=== PATIENT | female | born 1965 | race Hispanic/Latino ===

== ENCOUNTER 2021-04-23 19:34 | Emergency (ER) | payer MEDICAID ==
[~2021-04-23] VITALS: Ht 162.6 cm; Wt 108.9 kg
[2021-04-23] MEDS ORDERED: GABAPENTIN 300 MG CAPSULE PO STA (20:24)
[2021-04-23] MEDS ORDERED: ORPHENADRINE CITRATE 30 MG/ML ML IV ONE (21:00)
[2021-04-23 23:03] VITALS: BP 136/82
[2021-04-23] MEDS ORDERED: GABA800T9 PO (23:09)
[2021-04-23] MEDS ORDERED: HYDROCODONE/ACETAMINOPHEN 10/325 MG TAB PO ONE (23:30)
== END 2021-04-23 23:25 | disposition home or self-care (01) ==
LOC: EDH 19:34
DX: M51.16 Intervertebral disc disorders with radiculopathy, lumbar region (principal); M50.30 Other cervical disc degeneration, unspecified cervical region; E03.9 Hypothyroidism, unspecified; E11.9 Type 2 diabetes mellitus without complications; E66.01 Morbid (severe) obesity due to excess calories; K21.9 Gastro-esophageal reflux disease without esophagitis; M19.90 Unspecified osteoarthritis, unspecified site; Z79.4 Long term (current) use of insulin; Z79.899 Other long term (current) drug therapy; Z68.41 Body mass index [BMI] 40.0-44.9, adult
CPT/HCPCS: 36415; 84443; 96374; 99283; J2360

== ENCOUNTER 2022-03-03 19:42 | Emergency (ER) | payer MEDICAID ==
[~2022-03-03] VITALS: Ht 162.6 cm; Wt 105.2 kg
[~2022-03-03 19:42] MED LIST: GABA800T9 PO
[2022-03-03] MEDS ORDERED: TETANUS/DIPHTHERIA TOXOID [ADULT] 0.5 ML VIAL IM ONE (21:30)
[2022-03-03] MEDS ORDERED: KETOROLAC 60 MG VIAL (30MG/ML) IM ONE (21:30)
[2022-03-03] MEDS ORDERED: NAPR-1180 PO (21:53)
[2022-03-03 22:08] VITALS: BP 141/87
== END 2022-03-03 22:15 | disposition home or self-care (01) ==
LOC: EDH 19:42
DX: S90.31XA Contusion of right foot, initial encounter (principal); S10.91XA Abrasion of unspecified part of neck, initial encounter; E11.9 Type 2 diabetes mellitus without complications; I10 Essential (primary) hypertension; E66.01 Morbid (severe) obesity due to excess calories; Z68.39 Body mass index [BMI] 39.0-39.9, adult; Z79.1 Long term (current) use of non-steroidal anti-inflammatories (NSAID); Z79.899 Other long term (current) drug therapy; X58.XXXA Exposure to other specified factors, initial encounter; Y93.89 Activity, other specified; Y92.89 Other specified places as the place of occurrence of the external cause; Y99.8 Other external cause status
CPT/HCPCS: 99284; 90714; 73610; 73630; 96372; 90471; J1885

== ENCOUNTER 2022-05-07 18:06 | Emergency (ER) | payer MEDICAID ==
[~2022-05-07] VITALS: Ht 162.6 cm; Wt 99.8 kg
[~2022-05-07 18:06] MED LIST changes: +NAPR-1180 PO
[2022-05-07 18:56] LABS: APPEARANCE,URINE CLOUDY (CLEAR); BASOPHILS % (AUTO) 0.4 % (0.0-5.0); BILIRUBIN,URINE NEGATIVE (NEGATIVE); COLOR,URINE YELLOW (YELLOW); EOSINOPHILS % (AUTO) 1.2 % (0.0-8.0); GLUCOSE, URINE (UA) TRACE mg/dL (NEGATIVE); HEMATOCRIT 43.3 % (36-48); KETONES,URINE NEGATIVE (NEGATIVE); LEUKOCYTE ESTERASE ,URINE 500 Leu/uL (NEGATIVE); LYMPHOCYTES % (AUTO) 22.6 % (21.0-51.0); MEAN CORPUSCULAR HEMOGLOBIN 31.2 pg (27.0-33.0); MEAN CORPUSCULAR HGB CONC 35.3 g/dL (32.0-36.0); MEAN CORPUSCULAR VOLUME 88.2 fL (79-99); MONOCYTES % (AUTO) 6.4 % (3.0-13.0); NITRATE,URINE NEGATIVE (NEGATIVE); OCCULT BLOOD,URINE SMALL (NEGATIVE); PH,URINE 6.5 (5.0-8.0); PLATELET COUNT (AUTO) 107 K/uL (130-400); PROTEIN,URINE 20 mg/dL (NEGATIVE); RED BLOOD CELL COUNT(AUTO) 4.91 MIL/uL (4.00-5.50); RED CELL DISTRIBUTION WIDTH 13.8 % (11.0-15.5); UROBILINOGEN,URINE 3 mg/dL (0.2-1.0); WHITE BLOOD COUNT (AUTO) 5.6 K/uL (4.8-10.8)
[2022-05-07] MEDS ORDERED: 0.9%NACL 1000ML 1,000 ML IV ONE (19:00)
[2022-05-07 19:01] LABS: CREATININE 0.8 mg/dL (0.5-1.5); POTASSIUM 3.5 mmol/L (3.5-5.1)
[2022-05-07 19:09] LABS: ALBUMIN 3.8 g/dL (3.5-5.0); TOTAL PROTEIN, SERUM 8.1 g/dL (6.0-8.3)
[2022-05-07 19:13] LABS: BACTERIA,URINE RARE /HPF (None Seen); MUCUS,URINE RARE LPF (None Seen); RBC,URINE 26-50 /HPF (0-1); SQUAMOUS EPITHELIAL CELL,UR MOD /HPF (0-2)
[2022-05-07] MEDS ORDERED: CEFTRIAXONE 1G VIAL IVP ONE (20:00)
[2022-05-07] MEDS ORDERED: ONDANSETRON 4MG INJ IVP ONE (20:00)
[2022-05-07] MEDS ORDERED: MECL-160 PO (20:38)
[2022-05-07] MEDS ORDERED: CEFU500T67 PO (20:38)
[2022-05-07] MEDS ORDERED: MECLIZINE HCL 25 MG TABLET PO ONE (21:00)
[2022-05-07 21:04] VITALS: BP 131/62
== END 2022-05-07 21:14 | disposition home or self-care (01) ==
LOC: EDH 18:06
DX: R42 Dizziness and giddiness (principal); N39.0 Urinary tract infection, site not specified; F41.9 Anxiety disorder, unspecified; E11.9 Type 2 diabetes mellitus without complications; I10 Essential (primary) hypertension; E66.01 Morbid (severe) obesity due to excess calories; Z68.37 Body mass index [BMI] 37.0-37.9, adult
CPT/HCPCS: 99284; 96374; 96361; 96375; 84484; 80053; 85025; 87088; 81001; 36415; 93005; J7030; J0696; J2405

== ENCOUNTER 2023-01-03 20:11 | Emergency (ER) | payer MEDICAID ==
[~2023-01-03] VITALS: Ht 162.6 cm; Wt 106.1 kg
[~2023-01-03 20:11] MED LIST changes: +CEFU500T67 PO; +MECL-160 PO
[2023-01-03 20:14] VITALS: BP 118/64
[2023-01-03] MEDS ORDERED: BENZ200C53 PO (20:31)
[2023-01-03] MEDS ORDERED: PRED20TA3 PO (20:31)
[2023-01-03] MEDS ORDERED: ALBU90AE2 IH (20:31)
== END 2023-01-03 23:38 | disposition home or self-care (01) ==
LOC: EDH 20:11
DX: J40 Bronchitis, not specified as acute or chronic (principal); E11.9 Type 2 diabetes mellitus without complications; Z79.52 Long term (current) use of systemic steroids; Z79.899 Other long term (current) drug therapy; Z20.822 Contact with and (suspected) exposure to COVID-19
CPT/HCPCS: 99284; 71045; 87635; 87880; 87804 ×2; C9803

== ENCOUNTER 2023-05-21 19:51 | Emergency (ER) | payer MEDICAID ==
[~2023-05-21] VITALS: Ht 162.6 cm; Wt 100.7 kg
[~2023-05-21 19:51] MED LIST changes: +ALBU90AE2 IH; +BENZ200C53 PO; -MECL-160 PO; +MECL-302 PO; +PRED20TA3 PO
[2023-05-21 20:20] VITALS: BP 169/92; PULSE 88; RESP 18
== END 2023-05-21 21:28 | disposition home or self-care (01) ==
LOC: EDH 19:51
DX: H61.21 Impacted cerumen, right ear (principal); I10 Essential (primary) hypertension; E11.9 Type 2 diabetes mellitus without complications

== ENCOUNTER 2024-05-28 14:05 | Emergency (ER) | payer BC, MEDICAID ==
[~2024-05-28] VITALS: Ht 165.1 cm; Wt 81.6 kg
[~2024-05-28 14:05] MED LIST changes: -ALBU90AE2 IH; +ALBU90AE3 IH; +GABA-1555 PO; -GABA800T9 PO
--- NOTE | 2024-05-28 14:28 | ERN ---
General Chief Complaint: Headache Stated Complaint: HEADACHE Time Seen by MD: 14:07 History of Present Illness Initial Comments 59-year-old female who presents for headache nausea and epigastric discomfort after taking Ozempic. Patient tried Ozempic for the 1st time last night. Today she feels epigastric pain nauseous no vomiting and she has a headache. No other symptoms. No vision changes, no focal neurologic deficits no signs of stroke. Medical history: Hypertension, diabetes, insulin-dependent Surgical history: Back surgeries Stable vital signs per EMS. Allergies: Coded Allergies: No Known Allergies (Unverified Allergy, Unknown, 04/23/21) Home Meds Active Scripts Prednisone (Prednisone) 20 Mg Tablet, 1 TAB PO DAILY for 6 Days, #6 TAB 0 Refills TAKE 1 TAB BY MOUTH THREE TIMES PER DAY X3 DAYS, THEN TAKE 1 TAB BY MOUTH TWICE A DAY X2 DAYS, THEN TAKE 1 TAB BY MOUTH ONCE A DAY X1 DAY. Prov:MEENAKSHI OSUNA 01/03/23 Albuterol Sulfate (Proair Digihaler) 90 Mcg Aer.pw.bas, 90 MCG IH TID, #1 INHALER Prov:MEENAKSHI OSUNA 01/03/23 Benzonatate (Benzonatate) 200 Mg Capsule, 200 MG PO TID PRN for COUGH for 14 Days, #42 CAP Prov:MEENAKSHI OSUNA 01/03/23 Cefuroxime Axetil (Cefuroxime) 500 Mg Tablet, 500 MG PO BID for 5 Days, #10 TAB Prov:RANCHO KITCHEN MD 05/07/22 Meclizine HCl (Meclizine HCl) 25 Mg Tablet, 25 MG PO TID PRN for DIZZINESS, #25 TAB Prov:RANCHO KITCHEN MD 05/07/22 Naproxen (Naprosyn) 500 Mg Tablet, 500 MG PO BIDPC, #60 TAB Prov:BEBA PARISH 03/03/22 Gabapentin (Gabapentin) 800 Mg Tablet, 800 MG PO TID, #90 TAB 0 Refills Prov:DARELL CORONA MD 04/23/21 Past Medical History Past Medical History: Diabetes-Type II, GERD, Hypertension Medical History Other: SEASONAL ALLERGIES Past Surgical History: Cholecystectomy Surgical History Other: LOWER BACK SX Family History Family History: Negative Social History Social History: Negative, Lives with family ROS Dictation CONSTITUTIONAL: Weakness HEAD/FACE: No signs of trauma. EENT: No eye pain, no blurred vision, no tearing, no double vision, no ear wilma n, no ear discharge, no nose pain, no nasal congestion, no throat pain, no throat swelling, no mouth pain. RESPIRATORY: No cough, no orthopnea, no SOB, no stridor, no wheezing. CARDIOVASCULAR: No chest pain, no edema, no palpitations, no syncope. GASTROINTESTINAL/ABDOMINAL: Nausea vomiting epigastric discomfort GENITOURINARY: No abnormal discharge, no dysuria, no frequent urination, no hematuria. No complaints of pain in the genitals. MUSCULOSKELETAL: No back pain, no gout, no joint pain, no joint swelling, no muscle pain, no muscle stiffness, no neck pain. INTEGUMENTARY: No change in color, no change in hair/nails, no dryness, no lesion, no lumps, no rash. NEUROLOGICAL/PSYCH: Headache HEMATOLOGIC/LYMPHATIC: Not anemic, no history of blood clots, no apparent bleeding, no bruising, glands not swollen. All Systems Negative, Except as Noted. Physical Exam Physical Exam Dictation VITAL SIGNS: Reviewed. GENERAL APPEARANCE: Alert, oriented x3, moderate distress. HEAD AND FACE: Non-traumatic. EYES: PERRL, pink conjunctivas, eyelid no trauma, anterior chamber clear. EARS: Pinnas intact and no signs of trauma or erythema. Ear canals clear and no discharge. TMs no erythema. NOSE: No discharge, no bleeding. OROPHARYNX: Mouth normal, teeth no caries, tongue pink. Pharynx clear, no erythema. Tonsils no exudates, no abscesses noted. Mucous membrane moist. NECK: Supple, non-tender, no thyromegaly, no masses, no JVD, no bruits. BREAST: Deferred. CHEST: No tenderness, no crepitus, no paradoxical movement, no retractions. LUNGS: Clear, well-ventilated, symmetric, no rales, no wheezing, no rhonchi, no stridor, good breath sounds bilaterally. HEART: Regular rate, regular rhythm, no murmur, no gallops. VASCULAR: No peripheral edema. ABDOMEN: Soft, positive bowel sounds, nondistended, no guarding, nontender, no rebound, no masses no hepatomegaly, no splenomegaly, no Robles's sign, no hernias. RECTAL: Deferred. GENITAL: Deferred. NEUROLOGICAL: Normal speech, gross motor function intact, gross sensory function intact. MUSCULOSKELETAL: Neck nontender, full range of motion, back nontender, full range of motion. EXTREMITIES: Nontender, full range of motion. SKIN: Color pink, dry, no turgor, no rash, no lacerations, no abrasions, no contusions. LYMPHATICS: Deferred. Results Laboratory and Microbiology Lab and Micro Result Laboratory Tests Test 05/28/24 15:29 White Blood Count 6.7 K/uL (4.8-10.8) Red Blood Count 4.89 MIL/uL (4.00-5.50) Hemoglobin 15.4 g/dL (12.0-16.0) Hematocrit 43.1 % (36-48) Mean Corpuscular Volume 88.1 fL (79-99) Mean Corpuscular Hemoglobin 31.5 pg (27.0-33.0) Mean Corpuscular Hemoglobin Concent 35.7 g/dL (32.0-36.0) Red Cell Distribution Width 13.1 % (11.0-15.5) Platelet Count 107 K/uL (130-400) L Mean Platelet Volume 11.5 fL (7.5-10.5) H Immature Granulocyte % (Auto) 0.1 % (0-1) Neutrophils (%) (Auto) 80.4 % (40.0-77.0) H Lymphocytes (%) (Auto) 14.6 % (21.0-51.0) L Monocytes (%) (Auto) 4.2 % (3.0-13.0) Eosinophils (%) (Auto) 0.6 % (0.0-8.0) Basophils (%) (Auto) 0.1 % (0.0-5.0) Neutrophils # (Auto) 5.4 K/uL (1.8-7.7) Lymphocytes # (Auto) 1.0 K/uL (1.0-4.8) Monocytes # (Auto) 0.3 K/uL (0.1-1.0) Eosinophils # (Auto) 0.04 K/uL (0.00-0.70) Basophils # (Auto) 0.01 K/uL (0.00-0.20) Absolute Immature Granulocyte (auto 0.01 K/uL (0-1) Nucleated Red Blood Cells 0.0 % (0.0-0.19) Sodium Level 134 mmol/L (136-145) L Potassium Level 3.8 mmol/L (3.5-5.1) Chloride Level 99 mmol/L (101-111) L Carbon Dioxide Level 30 mmol/L (21-32) Blood Urea Nitrogen 11 mg/dL (7-18) Creatinine 0.6 mg/dL (0.5-1.0) Glomerular Filtration Rate Calc 105 mL/min (>90) Random Glucose 165 mg/dL (70-105) H Total Calcium 8.4 mg/dL (8.5-10.1) L Total Bilirubin 1.8 mg/dL (0.2-1.0) H Direct Bilirubin 0.2 mg/dL (0.0-0.3) Aspartate Amino Transf (AST/SGOT) 44 U/L (10-37) H Alanine Aminotransferase (ALT/SGPT) 53 U/L (12-78) Alkaline Phosphatase 88 U/L (50-136) Total Creatine Kinase 76 U/L (21-232) Troponin I High Sensitivity < 4.0 ng/L (4-50) L Total Protein 8.0 g/dL (6.0-8.3) Albumin 3.7 g/dL (3.5-5.0) Lipase 77 U/L (16-77) MDM CC: Headache, nausea, epigastric pain status post Ozempic use Historian: Patient Limitations by social determinants of Health: None Comorbidities: Hypertension, diabetes, back surgeries Differential diagnosis includes medication effect, biliary disease, gastritis, brain bleed, tumor, other. Vital signs: Stable remained stable Labs show no leukocytosis, left shift. No bands. Chemistry panel is normal. Liver enzymes normal. Lipase normal. Troponin normal. CT head without contrast per my independent interpretation: No acute abnormalities or bleeding. Patient received 1 L of normal saline, Toradol IV, Reglan IV here in the ER. She has improvement of her symptoms. I suspect it is due to the Ozempic. We will discharge with Reglan recommend PCP follow up as needed. REASON: headache ORDERING PHYSICIAN: MICHAEL LEVINE DO PROCEDURE: HEAD WO - CT HEAD/BRAIN W/O CONTRAST CT HEAD WITHOUT CONTRAST INDICATION: Headache TECHNIQUE: Noncontrast axial helical CT images from the vertex through the skull base using 5 mm slice thickness without contrast material. CT was performed with one or more of the following dose reduction techniques: Automated exposure control, adjustment of the mA and/or kV according to patient size, or use of iterative reconstruction technique. COMPARISON: None FINDINGS: The cerebral and cerebellar hemispheres are age-appropriate in appearance. No evidence for abnormal extra-axial fluid collections or masses. The ventricles and sulci are normal in size and configuration. No evidence for intracranial parenchymal, epidural, or subdural hemorrhage, mass effect or midline shift. The zepeda-white matter differentiation is well preserved. No secondary evidence to suggest acute ischemia. The brainstem and cerebellum appear normal. The visualized orbits appear unremarkable. The visible paranasal sinuses and mastoid air cells are clear. The calvarium appears normal. IMPRESSION: No acute intracranial process identified. ED Course Orders Procedure Category Date Status Time Cardiac Panel LAB 05/28/24 Complete 14:12 Cbc With Differential LAB 05/28/24 Complete 14:12 Basic Metabolic Panel LAB 05/28/24 Complete 14:12 Urinalysis Profile LAB 05/28/24 Logged 14:12 0.9%Nacl 1000ml (Ns PHA 05/28/24 Complete 1000ml) 14:30 Metoclopramide 10 PHA 05/28/24 Complete Mg/2 Ml Vial (Reglan 1 14:30 12 Lead Ekg Tracing- EKG 05/28/24 Complete Technical 14:12 Hepatic Function Panel LAB 05/28/24 Complete 14:12 Lipase LAB 05/28/24 Complete 14:12 Ketorolac PHA 05/28/24 Complete Tromethamine 15mg/Ml 14:30 Morphine 4mg Syg PHA 05/28/24 Complete (Morphine 4mg Syg) 14:30 Ct Head/Brain W/O CT 05/28/24 Resulted Contrast 14:34 Current Medications Medications (Trade) Dose Ordered Sig/Stacy Route PRN Reason Start Time Stop Time Status Last Admin Dose Admin Ketorolac Tromethamine (toRADol) 15 mg ONCE ONCE IV 05/28/24 14:30 05/28/24 14:31 DC 05/28/24 15:08 Metoclopramide HCl (regLAN 10MG IV) 10 mg ONCE ONCE IVP 05/28/24 14:30 05/28/24 14:31 DC 05/28/24 15:09 Morphine Sulfate (morPHINE 4MG SYG) 4 mg ONCE ONCE IVP 05/28/24 14:30 05/28/24 14:31 DC 05/28/24 15:09 Sodium Chloride 1,000 ml @ 0 mls/hr ONCE ONCE IV 05/28/24 14:30 05/28/24 14:31 DC 05/28/24 15:07 Vital Signs Date Time Temp Pulse Resp B/P (MAP) Pulse Ox O2 Delivery O2 Flow Rate FiO2 05/28/24 15:39 97.5 96 18 139/97 96 Room Air* 0 21 05/28/24 14:10 98.2 80 18 163/68 98 Room Air 0 DX & DISP Disposition: Discharge Departure Impression: Primary Impression: Medication side effect Additional Impressions: Headache, Nausea & vomiting Condition: Stable Scripts Metoclopramide HCl (Reglan 10 mg Tab) 10 Mg Tablet 1 TAB PO TID for nausea for 7 Days, #21 TAB 0 Refills Prov: MICHAEL LEVINE DO 05/28/24 Additional Instructions: Your symptoms are consistent with side effects from the Ozempic. I recommend reducing your Ozempic dose or stop using it. Discuss with your doctor whether he needs his switch to a different medication. Your lab work (CBC, BMP, lipase, liver enzymes) is stable. The CT scan your brain is unremarkable. You received IV fluid, Toradol, and Reglan here in the ER. I have prescribed Reglan tabs. You can take this up to 3 times a day as needed for stomach upset and nausea. You can take 600 mg of ibuprofen 3 times a day for headache. You can also take the hydrocodone tabs that you have already been prescribed for headache or pain. Please return to the emergency department if you have any concerns. Referrals: PEYMAN COX MD (PCP) MICHAEL LEVINE DO May 28, 2024 14:28
--- NOTE | 2024-05-28 14:31 | EKG ---
[facility] Test Date: 2024-05-28 Test Time: 14:25:22 Pat Name: MARQUIS CM Department: ED Room: Gender: F Agricultural Pilot: [id number] : 1965 Requested By: MICHAEL LEVINE Order Number: [id number] Reading MD: Jam Zhu Measurements Intervals [place] Rate: 86 P: 25 CA: 164 QRS: -7 QRSD: 88 T: -8 QT: 396 QTc: 473 Interpretive Statements Sinus rhythm Borderline T abnormalities, diffuse leads Compared to ECG 05/07/2022 17:44:59 T-wave abnormality now present Electronically Signed On 05-28-2024 20:50:52 [employer]IST by Jam Zhu Please click the below link to view image of tracing.
--- NOTE | 2024-05-28 14:59 | HMCIMG ---
CT HEAD WITHOUT CONTRAST INDICATION: Headache TECHNIQUE: Noncontrast axial helical CT images from the vertex through the skull base using 5 mm slice thickness without contrast material. CT was performed with one or more of the following dose reduction techniques: Automated exposure control, adjustment of the mA and/or kV according to patient size, or use of iterative reconstruction technique. COMPARISON: None FINDINGS: The cerebral and cerebellar hemispheres are age-appropriate in appearance. No evidence for abnormal extra-axial fluid collections or masses. The ventricles and sulci are normal in size and configuration. No evidence for intracranial parenchymal, epidural, or subdural hemorrhage, mass effect or midline shift. The zepeda-white matter differentiation is well preserved. No secondary evidence to suggest acute ischemia. The brainstem and cerebellum appear normal. The visualized orbits appear unremarkable. The visible paranasal sinuses and mastoid air cells are clear. The calvarium appears normal. IMPRESSION: No acute intracranial process identified.
[2024-05-28] MEDS: 0.9%NACL 1000ML 1,000 ML IV ONE (15:07)
[2024-05-28] MEDS: ketOROlac 15MG/ML VIAL (15MG/ML) IV ONE (15:08)
[2024-05-28] MEDS: metoCLOPRAmide 10 MG/2 ML VIAL IVP ONE (15:09)
[2024-05-28] MEDS: morPHINE 4 MG SYG IVP ONE (15:09)
[2024-05-28 15:39] LABS: BASOPHILS # (AUTO) 0.01 K/uL (0.00-0.20); BASOPHILS % (AUTO) 0.1 % (0.0-5.0); EOSINOPHILS # (AUTO) 0.04 K/uL (0.00-0.70); EOSINOPHILS % (AUTO) 0.6 % (0.0-8.0); HEMATOCRIT 43.1 % (36-48); IMMATURE GRANULOCYTE ABSOLUTE 0.01 K/uL (0-1); LYMPHOCYTES % (AUTO) 14.6 % (21.0-51.0); MEAN CORPUSCULAR HEMOGLOBIN 31.5 pg (27.0-33.0); MEAN CORPUSCULAR HGB CONC 35.7 g/dL (32.0-36.0); MEAN CORPUSCULAR VOLUME 88.1 fL (79-99); MONOCYTES # (AUTO) 0.3 K/uL (0.1-1.0); MONOCYTES % (AUTO) 4.2 % (3.0-13.0); NEUTROPHILS # (AUTO) 5.4 K/uL (1.8-7.7); NEUTROPHILS % (AUTO) 80.4 % (40.0-77.0); PLATELET COUNT (AUTO) 107 K/uL (130-400); RED BLOOD CELL COUNT(AUTO) 4.89 MIL/uL (4.00-5.50); RED CELL DISTRIBUTION WIDTH 13.1 % (11.0-15.5); WHITE BLOOD COUNT (AUTO) 6.7 K/uL (4.8-10.8)
[2024-05-28 15:47] LABS: CARBON DIOXIDE 30 mmol/L (21-32); CHLORIDE 99 mmol/L (101-111); CREATININE 0.6 mg/dL (0.5-1.0); GLOMERULAR FILTR. RATE CALC 105 mL/min (>90); GLUCOSE,RANDOM 165 mg/dL (70-105); POTASSIUM 3.8 mmol/L (3.5-5.1); SODIUM SERUM 134 mmol/L (136-145); UREA NITROGEN, BLOOD 11 mg/dL (7-18)
[2024-05-28 15:53] LABS: ALANINE AMINOTRANSFERASE 53 U/L (12-78); ALBUMIN 3.7 g/dL (3.5-5.0); ASPARTATE AMINOTRANSFERASE 44 U/L (10-37); BILIRUBIN,DIRECT 0.2 mg/dL (0.0-0.3); BILIRUBIN,TOTAL 1.8 mg/dL (0.2-1.0); CREATINE KINASE, TOTAL 76 U/L (21-232)
[2024-05-28] MEDS ORDERED: METO10TA41 PO (16:10)
[2024-05-28 16:12] VITALS: BP 140/82; PULSE 71; RESP 18; TEMP 97.5; O2SAT 98
== END 2024-05-28 16:36 | disposition home or self-care (01) ==
LOC: EDH 14:05 → EDBD 14:05 → EDH 16:36
DX: R51.9 Headache, unspecified (principal); R11.2 Nausea with vomiting, unspecified; T50.995A Adverse effect of other drugs, medicaments and biological substances, initial encounter; E11.9 Type 2 diabetes mellitus without complications; I10 Essential (primary) hypertension; K21.9 Gastro-esophageal reflux disease without esophagitis; Z79.4 Long term (current) use of insulin; Z79.52 Long term (current) use of systemic steroids; Z79.85 Long-term (current) use of injectable non-insulin antidiabetic drugs; Z79.899 Other long term (current) drug therapy; Z90.49 Acquired absence of other specified parts of digestive tract; Y92.89 Other specified places as the place of occurrence of the external cause
CPT/HCPCS: 99284; 96374; 70450; 96375; 96361; 82550; 80076; 84484; 80048; 83690; 85025; 36415; 93005; J7030; J2270; J2765; J1885

== ENCOUNTER 2024-07-21 18:05 | Emergency (ER) | payer BC ==
[~2024-07-21] VITALS: Ht 162.6 cm; Wt 99.3 kg
[~2024-07-21 18:05] MED LIST changes: +METO10TA41 PO
--- NOTE | 2024-07-21 18:23 | ERN ---
ED Note History of Present Illness Stated Complaint: LEFT RIB PAIN FOR 3 DAYS Chief Complaint: Rib Pain Time Seen by MD: 18:06 Time Seen by Midlevel: 18:06 Dictation: The patient is a 59-year-old female with a history of diabetes who presents to the emergency department with complaints of left lower rib pain last left upper abdominal pain onset Saturday after bending down to get something. Denies falling. Denies any nausea, vomiting, diarrhea, constipation, fevers. Allergies: Coded Allergies: No Known Allergies (Unverified Allergy, Unknown, 04/23/21) Home Meds Active Scripts Cyclobenzaprine HCl (Flexeril) 10 Mg Tab, 10 MG PO TID for muscle sstiffness, #14 TAB 0 Refills Prov:ELISA HUBBARD [facility] 07/21/24 Metoclopramide HCl (Reglan 10 mg Tab) 10 Mg Tablet, 1 TAB PO TID for nausea for 7 Days, #21 TAB 0 Refills Prov:MICHAEL LEVINE DO 05/28/24 Prednisone (Prednisone) 20 Mg Tablet, 1 TAB PO DAILY for 6 Days, #6 TAB 0 Re fills TAKE 1 TAB BY MOUTH THREE TIMES PER DAY X3 DAYS, THEN TAKE 1 TAB BY MOUTH TWICE A DAY X2 DAYS, THEN TAKE 1 TAB BY MOUTH ONCE A DAY X1 DAY. Prov:MEENAKSHI OSUNA V [facility] 01/03/23 Albuterol Sulfate (Proair Digihaler) 90 Mcg Aer.pw.bas, 90 MCG IH TID, #1 INHALER Prov:MEENAKSHI OSUNA V [facility] 01/03/23 Benzonatate (Benzonatate) 200 Mg Capsule, 200 MG PO TID PRN for COUGH for 14 Days, #42 CAP Prov:MEENAKSHI OSUNA V [facility] 01/03/23 Cefuroxime Axetil (Cefuroxime) 500 Mg Tablet, 500 MG PO BID for 5 Days, #10 TAB Prov:RANCHO KITCHEN MD 05/07/22 Meclizine HCl (Meclizine HCl) 25 Mg Tablet, 25 MG PO TID PRN for DIZZINESS, #25 TAB Prov:RANCHO KITCHEN MD 05/07/22 Naproxen (Naprosyn) 500 Mg Tablet, 500 MG PO BIDPC, #60 TAB Prov:BEBA PARISH 03/03/22 Gabapentin (Gabapentin) 800 Mg Tablet, 800 MG PO TID, #90 TAB 0 Refills Prov:DARELL CORONA MD 04/23/21 Past Medical History Past Medical History: Anxiety, Diabetes-Type II, High Cholesterol, Hypertension Additional Past Medical Hx: SEASONAL ALLERGIES Surgical History: Other Surgical History Other: LUMBAR SX Family History: Negative Social History: Negative, Lives with family RN Note Reviewed/Agreed w/PFSH: Yes Review of System Dictation Constitutional: Negative for fever,chills, and weight loss Eyes: Negative for injury, pain,redness, and discharge ENT: Negative for injury,pain or swelling Cardiovascular: Negative for chest pain, palpitations, and edema positive for left lower rib pain Respiratory: Negative for shortness of breath, cough, and wheezing, Abdomen/GI: Negative for abdominal pain, nausea, vomiting, diarrhea, and constipation Back: Negative for injury and pain : Negative for injury, bleeding and discharge MS/Extremity: Negative for injury and deformity Skin: Negative for rash, and discoloration Neuro: Negative for headache, weakness, numbness, tingling, and seizure Psych: Negative for suicide ideation, homicidal ideation, and hallucinations Initial Vital Sign VS Vital Signs Date Time Temp Pulse Resp B/P (MAP) Pulse Ox O2 Delivery O2 Flow Rate FiO2 07/21/24 18:08 98.1 74 18 149/76 98 0 07/21/24 20:16 Room Air* 21 Physical Exam Dictation Vital Signs reviewed General Appearance: Alert, oriented x 3, no acute distress, well developed, nourished. Head and Face: non-traumatic. Eyes: PERRL, pink conjunctivas, eyelid no trauma, anterior chamber with arcus senilis. Ears: Pinnas intact and no signs of trauma or erythema ear canals clear and no discharge TM no erythema Nose: No discharge, no bleeding. Oropharynx: Mouth normal, tongue pink. pharynx clear,no erythema, tonsils no exudates, no abscesses noted, mucous membrane moist Neck: Supple, non-tender, no thyromegaly, no masses, no JVD, no bruits Breast:Deferred Chest:No tenderness, no crepitus, no paradoxical movement, no retractions Lungs:Clear, well-ventilated, symmetric, no rales, no wheezing, no rhonchi, no stridor, good breath sounds bilaterally Heart: Regular rate, regular rhythm, no murmur, no gallops Vascular: no peripheral edema, Abdomen: Soft, positive bowel sounds, nondistended, no guarding, Left upper abdominal pain, no rebound, no masses no hepatomegaly, no splenomegaly, no Robles's sign, no hernias. Rectal: Deferred Genital: Deferred Neurological: Normal speech, motor function intact, sensory function intact Musculoskeletal: Neck nontender, full range of motion, back nontender, full range of motion, Extremities: nontender, full range of motion Skin: Color pink, dry, no turgor, no rash, no lacerations, no abrasions, no contusions. Lymphatic: Deferred Results (Laboratory/Radiology) Laboratory/Radiology Laboratory Tests Test 07/21/24 18:41 White Blood Count 4.5 K/uL (4.8-10.8) L Red Blood Count 4.34 MIL/uL (4.00-5.50) Hemoglobin 13.9 g/dL (12.0-16.0) Hematocrit 39.4 % (36-48) Mean Corpuscular Volume 90.8 fL (79-99) Mean Corpuscular Hemoglobin 32.0 pg (27.0-33.0) Mean Corpuscular Hemoglobin Concent 35.3 g/dL (32.0-36.0) Red Cell Distribution Width 13.2 % (11.0-15.5) Platelet Count 81 K/uL (130-400) L Mean Platelet Volume 11.7 fL (7.5-10.5) H Immature Granulocyte % (Auto) 0.2 % (0-1) Neutrophils (%) (Auto) 66.0 % (40.0-77.0) Lymphocytes (%) (Auto) 26.0 % (21.0-51.0) Monocytes (%) (Auto) 5.6 % (3.0-13.0) Eosinophils (%) (Auto) 2.0 % (0.0-8.0) Basophils (%) (Auto) 0.2 % (0.0-5.0) Neutrophils # (Auto) 3.0 K/uL (1.8-7.7) Lymphocytes # (Auto) 1.2 K/uL (1.0-4.8) Monocytes # (Auto) 0.3 K/uL (0.1-1.0) Eosinophils # (Auto) 0.09 K/uL (0.00-0.70) Basophils # (Auto) 0.01 K/uL (0.00-0.20) Absolute Immature Granulocyte (auto 0.01 K/uL (0-1) Nucleated Red Blood Cells 0.0 % (0.0-0.19) Sodium Level 138 mmol/L (136-145) Potassium Level 3.4 mmol/L (3.5-5.1) L Chloride Level 102 mmol/L (101-111) Carbon Dioxide Level 31 mmol/L (21-32) Blood Urea Nitrogen 11 mg/dL (7-18) Creatinine 0.9 mg/dL (0.5-1.0) Glomerular Filtration Rate Calc 75 mL/min (>90) Random Glucose 359 mg/dL (70-105) H Total Calcium 8.8 mg/dL (8.5-10.1) Total Bilirubin 1.0 mg/dL (0.2-1.0) Direct Bilirubin 0.2 mg/dL (0.0-0.3) Aspartate Amino Transf (AST/SGOT) 40 U/L (10-37) H Alanine Aminotransferase (ALT/SGPT) 60 U/L (12-78) Alkaline Phosphatase 83 U/L (50-136) Troponin I High Sensitivity 5 ng/L (4-50) Total Protein 7.1 g/dL (6.0-8.3) Albumin 3.1 g/dL (3.5-5.0) L Lipase 118 U/L (16-77) H REASON: left lower pain ORDERING PHYSICIAN: ELISA HUBBARD LINE STAKER PROCEDURE: CHEST WO - CT CHEST W/O CONTRAST CT CHEST WITHOUT CONTRAST CT RECONSTRUCTIONS INDICATION: Left lower rib pain radiating from the back to the front TECHNIQUE: Routine axial images using 5 mm slice thickness were acquired from the lung apices to the bases without the administration of IV contrast.Coronal and sagittal reformatted images acquired for interpretation. 3-D volume renderings included. CT was performed with one or more of the following dose reduction techniques: Automated exposure control, adjustment of the mA and/or kV according to patient size, or use of iterative reconstruction technique. COMPARISON: None FINDINGS: The heart size is normal. No pericardial effusion noted. The visualized great vessels and thoracic aorta are within normal limits. The trachea and airways are patent. No evidence for pulmonary nodule, consolidation, cavitary lesion, or other abnormal pulmonary parenchymal opacity. No axillary, hilar, or mediastinal lymphadenopathy. No pleural effusion or pneumothorax identified. 1.0 cm aggregate of nonobstructing calculi at the upper pole of the right kidney. Gallbladder is absent. Liver contour nodularity. 2.0 cm simple cyst within the caudate lobe. Diffuse low attenuation of the liver parenchyma suggests fatty change. Visible osseous structures are intact. IMPRESSION: 1. No evidence for any left rib abnormality or any acute cardiopulmonary process. 2. Findings suggesting cirrhotic liver. 3. Nonobstructing right nephrolithiasis. 4. Additional minor findings, postsurgical changes, and pertinent negatives as reported. Labs Reviewed?: Yes EKG: (+) rhythm (Sinus rhythm) EKG Comment: Date:07/21/2024 Time:1902 Ventricular rate:68 [place] interval:165 QRS duration:90 QT/QTc:414 EKG interpretation: Sinus rhythm Reviewed by ED Attending no STEMI ED Course ED Course Orders Procedure Category Date Status Time Ketorolac 60mg/2ml PHA 07/21/24 Complete (Toradol 60mg/2ml) 18:30 Cbc With Differential LAB 07/21/24 Complete 18:17 Troponin I High LAB 07/21/24 Complete Sensitivity 18:17 12 Lead Ekg Tracing- EKG 07/21/24 Complete Technical 18:17 Lipase LAB 07/21/24 Complete 18:17 Basic Metabolic Panel LAB 07/21/24 Complete 18:17 Hepatic Function Panel LAB 07/21/24 Complete 18:17 Ct Chest W/O Contrast CT 07/21/24 Resulted 18:57 Insulin Regular, PHA 07/21/24 Complete Human 3ml (Humulin R 19:30 Potassium Bicarb/Cit PHA 07/21/24 Complete Ac 25meq (K-Lyte Ta 19:30 Lidocaine (Lidocaine PHA 07/21/24 Complete Patch 4%) 20:00 Current Medications Medications (Trade) Dose Ordered Sig/Stacy Route PRN Reason Start Time Stop Time Status Last Admin Dose Admin Insulin Human Regular (humuLIN R 100 UNIT/ML 3ML) 8 unit ONCE ONCE SQ 07/21/24 19:30 07/21/24 19:31 DC 07/21/24 19:45 Ketorolac Tromethamine (toRADol 60MG/ 2ML) 60 mg ONCE ONCE IM 07/21/24 18:30 07/21/24 18:31 DC 07/21/24 18:35 Lidocaine (Lidocaine Patch 4%) 1 each ONCE ONCE TP 07/21/24 20:00 07/21/24 20:01 DC 07/21/24 20:03 Potassium Bicarbonate (K-Lyte Tablet Eff 25 Meq Tablet.eff) 25 meq ONCE ONCE PO 07/21/24 19:30 07/21/24 19:31 DC 07/21/24 19:42 Vital Signs Date Time Temp Pulse Resp B/P (MAP) Pulse Ox O2 Delivery O2 Flow Rate FiO2 07/21/24 20:16 98.1 72 18 137/71 98 Room Air* 0 21 07/21/24 18:08 98.1 74 18 149/76 98 0 Medical Decision Making MDM The patient is a 59-year-old female with a history of diabetes who presents to the emergency department with complaints of left lower rib pain last left upper abdominal pain onset Saturday after bending down to get something. Denies falling. Denies any nausea, vomiting, diarrhea, constipation, fevers. CBC showed no leukocytosis, no anemia, low platelets slightly decreased from previous visits, patient with no active bleeding, chemistry showed mild hypokalemia, GFR of some, elevated blood glucose noted patient was giving a potassium replacement. CT showed no acute rib fractures. Patient reports improving in pain. Continues in no acute distress. Will be discharged to follow up with PCP. Differential diagnosis: Rib fracture, gastritis ACS, muscle spasms Need for hospitalization: Patient does not meet criteria for hospitalization. There are no social concerns with this patient. DX & DISP Disposition: Discharge Departure Impression: Primary Impression: Rib pain on left side Additional Impressions: Rib sprain, Uncontrolled diabetes mellitus, Hypokalemia, Thrombocytopenia Condition: Stable Scripts Cyclobenzaprine HCl (Flexeril) 10 Mg Tab 10 MG PO TID for muscle sstiffness, #14 TAB 0 Refills Prov: ELISA HUBBARD LINE STAKER 07/21/24 Additional Instructions: Please follow up with the primary doctor in 1-2 days. Please return to ER if symptoms worsen. FOLLOW-UP WITH PRIMARY CARE PROVIDER IN 1 TO 2 DAYS. TAKE MEDICATIONS DIRECTED HERE IN THE EMERGENCY ROOM. OKAY TO CONTINUE HOME MEDICATIONS UNLESS OTHERWISE DISCUSSED DURING YOUR VISIT IN THE EMERGENCY ROOM TODAY. RETURN TO YOUR NEAREST EMERGENCY ROOM IF SYMPTOMS WORSEN OR IF THERE IS NO IMPROVEMENT. CALL 911 IF YOU NEED IMMEDIATE ASSISTANCE. TAKE TYLENOL OR MOTRIN [id number] NEEDED AND IF NO CONTRAINDICATIONS ARE PRESENT. INCREASE ORAL HYDRATION. A WOUND CULTURE OR URINE CULTURE WAS ORDERED HERE IN THE EMERGENCY ROOM DEPARTMENT PLEASE FOLLOW-UP WITH PRIMARY CARE PROVIDER AND ADVISE THEM TO GET REPEAT PORTS FROM OUR FACILITY. IF YOU HAD ANY ASHUOTSH WRAP/SPLINTS THAT WERE APPLIED HERE, PLEASE DO NOT REMOVE THEM UNTIL YOU SEE YOUR PRIMARY CARE OR SPECIALTY. Referrals: PEYMAN COX MD (PCP) Time of Disposition: 20:07 I have reviewed the case, and I agree with, Diagnosis and Plan I performed a substantive portion of the visit. I have reviewed and personally made and approve the management plan that is documented in the notes by myself with ERIK/resident. I acknowledged full responsibility for the patient's management plan. ELISA HUBBARD Jul 21, 2024 18:23 MICHAEL LEVINE DO Jul 21, 2024 22:58
[2024-07-21] MEDS: ketOROlac 60 MG VIAL (30MG/ML) IM ONE (18:35)
[2024-07-21 18:52] LABS: BASOPHILS # (AUTO) 0.01 K/uL (0.00-0.20); BASOPHILS % (AUTO) 0.2 % (0.0-5.0); EOSINOPHILS # (AUTO) 0.09 K/uL (0.00-0.70); HEMATOCRIT 39.4 % (36-48); IMMATURE GRANULOCYTE ABSOLUTE 0.01 K/uL (0-1); LYMPHOCYTES # (AUTO) 1.2 K/uL (1.0-4.8); MEAN CORPUSCULAR HGB CONC 35.3 g/dL (32.0-36.0); MEAN CORPUSCULAR VOLUME 90.8 fL (79-99); MONOCYTES # (AUTO) 0.3 K/uL (0.1-1.0); MONOCYTES % (AUTO) 5.6 % (3.0-13.0); PLATELET COUNT (AUTO) 81 K/uL (130-400); RED BLOOD CELL COUNT(AUTO) 4.34 MIL/uL (4.00-5.50); RED CELL DISTRIBUTION WIDTH 13.2 % (11.0-15.5); WHITE BLOOD COUNT (AUTO) 4.5 K/uL (4.8-10.8)
[2024-07-21 19:01] LABS: CREATININE 0.9 mg/dL (0.5-1.0); POTASSIUM 3.4 mmol/L (3.5-5.1)
--- NOTE | 2024-07-21 19:07 | EKG ---
[facility] Test Date: 2024-07-21 Test Time: 19:03:21 Pat Name: MARQUIS CM Department: ED Room: Gender: F Map And Chart Mounter: [id number] : [id number] Requested By: ELISA HUBBARD Order Number: [id number] Reading MD: Luis Stanton Measurements Intervals [place] Rate: 68 P: 27 MS: 165 QRS: 4 QRSD: 90 T: 23 QT: 414 QTc: 442 Interpretive Statements Sinus rhythm Compared to ECG 05/28/2024 14:25:22 T-wave abnormality no longer present Electronically Signed On 07-23-2024 10:29:42 FLUMER by Luis Stanton Please click the below link to view image of tracing.
[2024-07-21 19:10] LABS: ALBUMIN 3.1 g/dL (3.5-5.0); BILIRUBIN,DIRECT 0.2 mg/dL (0.0-0.3); TOTAL PROTEIN, SERUM 7.1 g/dL (6.0-8.3)
--- NOTE | 2024-07-21 19:36 | HMCIMG ---
CT CHEST WITHOUT CONTRAST CT RECONSTRUCTIONS INDICATION: Left lower rib pain radiating from the back to the front TECHNIQUE: Routine axial images using 5 mm slice thickness were acquired from the lung apices to the bases without the administration of IV contrast.Coronal and sagittal reformatted images acquired for interpretation. 3-D volume renderings included. CT was performed with one or more of the following dose reduction techniques: Automated exposure control, adjustment of the mA and/or kV according to patient size, or use of iterative reconstruction technique. COMPARISON: None FINDINGS: The heart size is normal. No pericardial effusion noted. The visualized great vessels and thoracic aorta are within normal limits. The trachea and airways are patent. No evidence for pulmonary nodule, consolidation, cavitary lesion, or other abnormal pulmonary parenchymal opacity. No axillary, hilar, or mediastinal lymphadenopathy. No pleural effusion or pneumothorax identified. 1.0 cm aggregate of nonobstructing calculi at the upper pole of the right kidney. Gallbladder is absent. Liver contour nodularity. 2.0 cm simple cyst within the caudate lobe. Diffuse low attenuation of the liver parenchyma suggests fatty change. Visible osseous structures are intact. IMPRESSION: 1. No evidence for any left rib abnormality or any acute cardiopulmonary process. 2. Findings suggesting cirrhotic liver. 3. Nonobstructing right nephrolithiasis. 4. Additional minor findings, postsurgical changes, and pertinent negatives as reported.
[2024-07-21] MEDS: PoTASSium BIcarbonate/CIT AC 25 MEQ TABLET.EFF PO ONE (19:42)
[2024-07-21] MEDS: INSULIN humuLIN R 100 UNIT/ML 3ML SQ ONE (19:45)
[2024-07-21] MEDS: LIDOCAINE 4% ADH..PATCH TP ONE (20:03)
[2024-07-21] MEDS ORDERED: CYCL10TA16 PO (20:10)
[2024-07-21 20:16] VITALS: BP 137/71; PULSE 72; RESP 18; TEMP 98.1; O2SAT 98
== END 2024-07-21 20:18 | disposition home or self-care (01) ==
LOC: EDH 18:05
DX: S23.41XA Sprain of ribs, initial encounter (principal); E11.65 Type 2 diabetes mellitus with hyperglycemia; D69.6 Thrombocytopenia, unspecified; E87.6 Hypokalemia; E78.00 Pure hypercholesterolemia, unspecified; I10 Essential (primary) hypertension; Z79.52 Long term (current) use of systemic steroids; Z79.899 Other long term (current) drug therapy; Z98.890 Other specified postprocedural states; X58.XXXA Exposure to other specified factors, initial encounter; Y93.89 Activity, other specified; Y92.89 Other specified places as the place of occurrence of the external cause; Y99.8 Other external cause status
CPT/HCPCS: 99284; 71250; 80076; 84484; 80048; 83690; 85025; 36415; 96372 ×2; 93005; J1815; J1885

== ENCOUNTER 2024-10-24 14:24 | Emergency (ER) | payer BC ==
[~2024-10-24] VITALS: Ht 162.6 cm; Wt 104.3 kg
[~2024-10-24 14:24] MED LIST changes: +CYCL10TA16 PO
--- NOTE | 2024-10-24 14:38 | ERN ---
ED Note History of Present Illness Stated Complaint: COUGH,SOB Chief Complaint: Cough Time Seen by MD: 14:25 Time Seen by Midlevel: 14:36 Dictation: PATIENT IS A 59-YEAR-OLD FEMALE COMING IN WITH COMPLAINTS OF SHORTNESS A BREATH WITH A NONPRODUCTIVE COUGH AND DYSPNEA ON EXERTION FOR THE LAST 5-7 DAYS. SHE HAS NO FEVER NO CHILLS NO LOSS OF VOMITING. SHE STATES SHE DOES HAVE LOSS OF TASTE AND SMELL. NO NAUSEA VOMITING NO DIARRHEA SHE HAS NOT BEEN TO SEE HER PRIMARY CARE DOCTOR BECAUSE HE HAS BEEN OUT OF TOWN. SHE DENIES ANY HISTORY OF CHRONIC PULMONARY DISEASE Allergies: Coded Allergies: No Known Allergies (Unverified Allergy, Unknown, 04/23/21) Home Meds Active Scripts Albuterol Sulfate (Ventolin Hfa/Proventil Hfa/Proair Hfa) 90 Mcg Puff, 2 PUFF IH Q4H for WHEEZING, #1 INHALER 0 Refills Prov:KINGS ROMAN NP 10/24/24 Benzonatate (Tessalon Perles) 100 Mg Cap, 200 MG PO TID for cough, #60 CAP 0 Refills Prov:KINGS ROMAN NP 10/24/24 Cyclobenzaprine HCl (Flexeril) 10 Mg Tab, 10 MG PO TID for muscle sstiffness, #14 TAB 0 Refills Prov:ELISA HUBBARD 07/21/24 Metoclopramide HCl (Reglan 10 mg Tab) 10 Mg Tablet, 1 TAB PO TID for nausea for 7 Days, #21 TAB 0 Refills Prov:MICHAEL LEVINE DO 05/28/24 Prednisone (Prednisone) 20 Mg Tablet, 1 TAB PO DAILY for 6 Days, #6 TAB 0 Refills TAKE 1 TAB BY MOUTH THREE TIMES PER DAY X3 DAYS, THEN TAKE 1 TAB BY MOUTH TWICE A DAY X2 DAYS, THEN TAKE 1 TAB BY MOUTH ONCE A DAY X1 DAY. Prov:MEENAKSHI OSUNA 01/03/23 Albuterol Sulfate (Proair Digihaler) 90 Mcg Aer.pw.bas, 90 MCG IH TID, #1 INHALER Prov:MEENAKSHI OSUNA 01/03/23 Benzonatate (Benzonatate) 200 Mg Capsule, 200 MG PO TID PRN for COUGH for 14 Days, #42 CAP Prov:MEENAKSHI OSUNA V [facility]ATE [facility] 7/6/23 Cefuroxime Axetil (Cefuroxime) 500 Mg Tablet, 500 MG PO BID for 5 Days, #10 TAB Prov:RANCHO KITCHEN MD 05/07/22 Meclizine HCl (Meclizine HCl) 25 Mg Tablet, 25 MG PO TID PRN for DIZZINESS, #25 TAB Prov:RNACHO KITCHEN MD 05/07/22 Naproxen (Naprosyn) 500 Mg Tablet, 500 MG PO BIDPC, #60 TAB Prov:BEBA PARISH 03/03/22 Gabapentin (Gabapentin) 800 Mg Tablet, 800 MG PO TID, #90 TAB 0 Refills Prov:DARELL CORONA MD 04/23/21 Past Medical History Past Medical History: Anxiety, Diabetes-Type II, High Cholesterol, Hypertension Additional Past Medical Hx: SEASONAL ALLERGIES Surgical History: Other Surgical History Other: LUMBAR SX Family History: Negative Social History: Negative, Lives with family History: Not Applicable RN Note Reviewed/Agreed w/PFSH: Yes Review of System Dictation CONSTITUTIONAL: NEGATIVE EXCEPT FOR HPI HEAD/FACE: NEGATIVE EXCEPT FOR HPI EENT: NEGATIVE EXCEPT FOR HPI RESPIRATORY: NEGATIVE EXCEPT FOR HPI COUGH WITH SHORTNESS A BREATH GASTROINTESTINAL/ABDOMINAL: NEGATIVE EXCEPT FOR HPI GENITOURINARY: NEGATIVE EXCEPT FOR HPI MUSCULOSKELETAL: NEGATIVE EXCEPT FOR HPI INTEGUMENTARY: NEGATIVE EXCEPT FOR HPI NEUROLOGICAL/PSYCH: NEGATIVE EXCEPT FOR HPI HEMATOLOGIC/LYMPHATIC: NEGATIVE EXCEPT FOR HPI ALL SYSTEMS NEGATIVE, EXCEPT NOTED ABOVE. 13 POINT REVIEW OF SYSTEMS ASSESSED AND ALL NEGATIVE EXCEPT FOR ABOVE. Initial Vital Sign VS Vital Signs Date Time Temp Pulse Resp B/P (MAP) Pulse Ox O2 Delivery O2 Flow Rate FiO2 10/24/24 14:26 98.2 62 20 151/90 98 Room Air 0 Physical Exam Dictation VITAL SIGNS REVIEWED GENERAL APPEARANCE: ALERT, ORIENTED X 3, MODERATE ACUTE DISTRESS, WELL DEVEL OPED, NOURISHED. HEAD AND FACE: NON-TRAUMATIC. EYES: PERRL, PINK CONJUNCTIVAS, EYELID NO TRAUMA, ANTERIOR CHAMBER WITH ARCUS SE NILIS. EARS: PINNAS INTACT AND NO SIGNS OF TRAUMA OR ERYTHEMA EAR CANALS CLEAR AND NO DISCHARGE TM NO ERYTHEMA NOSE: NO DISCHARGE, NO BLEEDING. OROPHARYNX: MOUTH NORMAL, TONGUE PINK, PHARYNX CLEAR,NO ERYTHEMA, TONSILS NO EXUDATES, NO ABSCESSES NOTED, MUCOUS MEMBRANE MOIST NECK: SUPPLE, NON-TENDER, NO THYROMEGALY, NO MASSES, NO JVD, NO BRUITS BREAST:DEFERRED CHEST:NO TENDERNESS, NO CREPITUS, NO PARADOXICAL MOVEMENT, NO RETRACTIONS LUNGS:CLEAR, WELL-VENTILATED, SYMMETRIC, NO RALES, NO WHEEZING, NO RHONCHI, NO STRIDOR, GOOD BREATH SOUNDS BILATERALLY PERSISTENT DRY COUGH NOTED HEART: REGULAR RATE, REGULAR RHYTHM, NO MURMUR, NO GALLOPS VASCULAR: NO PERIPHERAL EDEMA, ABDOMEN: SOFT, POSITIVE BOWEL SOUNDS, NONDISTENDED, NO GUARDING, NONTENDER, NO REBOUND, NO MASSES NO HEPATOMEGALY, NO SPLENOMEGALY, NO CRUM'S SIGN, NO HERNIAS. RECTAL: DEFERRED GENITAL: DEFERRED NEUROLOGICAL: NORMAL SPEECH, MOTOR FUNCTION INTACT, SENSORY FUNCTION INTACT MUSCULOSKELETAL: NECK NONTENDER, FULL RANGE OF MOTION, BACK NONTENDER, FULL RANGE OF MOTION, EXTREMITIES: NONTENDER, FULL RANGE OF MOTION SKIN: COLOR PINK, DRY, NO TURGOR, NO RASH, NO LACERATIONS, NO ABRASIONS, NO CONTUSIONS. LYMPHATIC: DEFERRED Results (Laboratory/Radiology) Laboratory/Radiology Laboratory Tests Test 10/24/24 14:30 Influenza Type A Antigen Negative For Type A Influenza Type B Antigen Negative For Type B SARS-CoV-2, RNA, NAAT NEGATIVE SARS CoV-2 Group A Streptococcus Rapid negative (NEGATIVE) 1608/chest x-ray negative Labs Reviewed?: Yes ED Course ED Course Orders Procedure Category Date Status Time Covid Rna Naat LAB 10/24/24 Complete 14:29 Influenza Type A & B, LAB 10/24/24 Complete Rapid 14:29 Rapid (Group A Strep) LAB 10/24/24 Complete 14:29 Chest 1vw RAD 10/24/24 Resulted 14:32 Dexamethasone 4mg/Ml PHA 10/24/24 Complete 1ml Vial (Dexametha 15:00 Budesonide 0.5 Mg/2 PHA 10/24/24 Complete Ml Inh (Pulmicort 0. 14:32 Albuterol 0.083% PHA 10/24/24 Complete 2.5mg/3ml (Proventil 15:00 Current Medications Medications (Trade) Dose Ordered Sig/Stacy Route PRN Reason Start Time Stop Time Status Last Admin Dose Admin Albuterol Sulfate (Proventil 0.083% 2.5mg/3ml) 2.5 mg ONCE ONCE IH 10/24/24 15:00 10/24/24 15:01 DC 10/24/24 15:35 Budesonide (Pulmicort 0.5 Mg/2ml) 0.5 mg ONCE STAT IH 10/24/24 14:32 10/24/24 14:47 DC 10/24/24 15:35 Dexamethasone Sodium Phosphate (dexaMETHasone 4MG/ML 1ML VIAL) 8 mg ONCE ONCE IM 10/24/24 15:00 10/24/24 15:01 DC Vital Signs Date Time Temp Pulse Resp B/P (MAP) Pulse Ox O2 Delivery O2 Flow Rate FiO2 10/24/24 15:30 62 18 10/24/24 14:26 98.2 62 20 151/90 98 Room Air 0 1608/patient states she feels better after treatments with albuterol/budesonide and Decadron. Discharged home with prednisone and albuterol Told to see her primary care doctor Saturday for management Medical Decision Making MDM Medical discharge making based on chest x-ray and swabs for flu COVID and strep. X-ray negative Swabs were all negative Patient treated with Decadron budesonide and albuterol Feels markedly improved after treatment. Discharged home with viral URI with cough DX & DISP Disposition: Discharge Departure Impression: Primary Impression: Viral URI with cough Condition: Stable Scripts Albuterol Sulfate (Ventolin Hfa/Proventil Hfa/Proair Hfa) 90 Mcg Puff 2 PUFF IH Q4H for WHEEZING, #1 INHALER 0 Refills Prov: KINGS ROMAN [employer] 10/24/24 Benzonatate (Tessalon Perles) 100 Mg Cap 200 MG PO TID for cough, #60 CAP 0 Refills Prov: KINGS ROMAN [employer] 10/24/24 Additional Instructions: Follow-up with primary care provider in 1 to 2 days. Take medications as directed here in the emergency room. Okay to continue home medications unless otherwise discussed during your visit in the emergency room today. Return to your nearest emergency room if symptoms worsen or if there is no improvement. Call 911 if you need immediate assistance. Take Tylenol or Motrin [id number] as needed and if no contraindications are present. Increase oral hydration. A wound culture or urine culture was ordered here in the emergency room department please follow-up with primary care provider and advise them to get repeat ports from our facility. If you had any Alexey wrap/splints t hat were applied here, please do not remove them until you see your primary care or specialty. Use albuterol inhaler every 4 hours while awake for the next three days. Use Tessalon Perles for cough. See your doctor on Saturday without fail for follow up and management. Referrals: PEYMAN COX MD (PCP) KINGS ROMAN NP Oct 24, 2024 14:38 MICHAEL LEVINE DO Oct 24, 2024 17:14
[2024-10-24 14:54] LABS: RAPID GROUP A STREP negative (NEGATIVE)
[2024-10-24 14:55] LABS: INFLUENZA TYPE A Negative For Type A (NEGATIVE); INFLUENZA TYPE B Negative For Type B (NEGATIVE)
[2024-10-24 14:56] LABS: SARS-CoV-2, RNA, NAAT NEGATIVE SARS CoV-2 (NEGATIVE)
[2024-10-24 15:30] VITALS: PULSE 62; RESP 18
[2024-10-24] MEDS: ALBUTEROL 0.083% 2.5 MG/3 ML INH IH ONE (15:35)
[2024-10-24] MEDS: BUDESONIDE 0.5 MG/2 ML INH IH STA (15:35)
[2024-10-24] MEDS ORDERED: BENZ-39 PO (16:11)
[2024-10-24] MEDS ORDERED: ALBUHFA IH (16:11)
--- NOTE | 2024-10-24 16:22 | HMCIMG ---
INDICATION: SOB/COUGH ONE WEEK TECHNIQUE: CHEST 1VW COMPARISON: 07/21/2024 FINDINGS AND IMPRESSION: Prominent bilateral interstitial markings which may represent bronchitis or vascular congestion in the proper clinical setting. Cardiac silhouette is within normal limits. Mild degenerative changes of the spine. The visualized upper abdomen appears unremarkable.
[2024-10-24] MEDS: dexaMETHasone SOD PHOSPHATE 4 MG/ML 1ML VIAL IM ONE (17:20)
[2024-10-24 17:35] VITALS: BP 143/86; PULSE 63; RESP 19; TEMP 98.2; O2SAT 99
== END 2024-10-24 17:36 | disposition home or self-care (01) ==
LOC: EDH 14:24
DX: J06.9 Acute upper respiratory infection, unspecified (principal); B97.89 Other viral agents as the cause of diseases classified elsewhere; E11.9 Type 2 diabetes mellitus without complications; E78.00 Pure hypercholesterolemia, unspecified; I10 Essential (primary) hypertension; Z79.51 Long term (current) use of inhaled steroids; Z79.52 Long term (current) use of systemic steroids; Z79.899 Other long term (current) drug therapy; Z20.822 Contact with and (suspected) exposure to COVID-19
CPT/HCPCS: 99284; 71045; 87635; 87880; 87804 ×2; 96372; 94640; J1100

== ENCOUNTER 2024-12-02 21:05 | Emergency (ER) | payer BC ==
[~2024-12-02] VITALS: Ht 162.6 cm; Wt 104.8 kg
[~2024-12-02 21:05] MED LIST changes: +ALBUHFA IH; +BENZ-39 PO
[2024-12-02 21:13] VITALS: BP 135/82; PULSE 88; RESP 16; TEMP 98.4; O2SAT 96
[2024-12-02] MEDS: 0.9%NACL 1000ML 1,000 ML IV ONE (21:46)
[2024-12-02] MEDS: acetaMINOPHEN 500 MG TABLET PO ONE (21:46)
[2024-12-02 21:47] LABS: APPEARANCE,URINE CLEAR (CLEAR); BILIRUBIN,URINE NEGATIVE (NEGATIVE); COLOR,URINE COLORLESS (YELLOW); GLUCOSE, URINE (UA) 200 mg/dL (NEGATIVE); KETONES,URINE NEGATIVE (NEGATIVE); LEUKOCYTE ESTERASE ,URINE NEGATIVE Leu/uL (NEGATIVE); NITRATE,URINE NEGATIVE (NEGATIVE); OCCULT BLOOD,URINE NEGATIVE (NEGATIVE); PROTEIN,URINE NEGATIVE (NEGATIVE); UROBILINOGEN,URINE 0.2 mg/dL (0.2-1.0)
[2024-12-02 21:48] LABS: ADD UA MICROSCOPIC YES
[2024-12-02 21:50] LABS: BASOPHILS # (AUTO) 0.02 K/uL (0.00-0.20); BASOPHILS % (AUTO) 0.4 % (0.0-5.0); EOSINOPHILS # (AUTO) 0.05 K/uL (0.00-0.70); EOSINOPHILS % (AUTO) 0.9 % (0.0-8.0); HEMATOCRIT 42.2 % (36-48); IMMATURE GRANULOCYTE ABSOLUTE 0.02 K/uL (0-1); LYMPHOCYTES # (AUTO) 1.4 K/uL (1.0-4.8); LYMPHOCYTES % (AUTO) 26.5 % (21.0-51.0); MEAN CORPUSCULAR HEMOGLOBIN 31.5 pg (27.0-33.0); MEAN CORPUSCULAR HGB CONC 35.1 g/dL (32.0-36.0); MEAN CORPUSCULAR VOLUME 89.8 fL (79-99); MONOCYTES # (AUTO) 0.4 K/uL (0.1-1.0); MONOCYTES % (AUTO) 7.2 % (3.0-13.0); NEUTROPHILS # (AUTO) 3.5 K/uL (1.8-7.7); NEUTROPHILS % (AUTO) 64.6 % (40.0-77.0); PLATELET COUNT (AUTO) 98 K/uL (130-400); RED CELL DISTRIBUTION WIDTH 13.1 % (11.0-15.5); WHITE BLOOD COUNT (AUTO) 5.4 K/uL (4.8-10.8)
[2024-12-02 21:51] LABS: BACTERIA,URINE RARE /HPF (None Seen); MUCUS,URINE RARE LPF (None Seen); RBC,URINE 0-1 /HPF (0-1); SQUAMOUS EPITHELIAL CELL,UR RARE /HPF (0-2); WBC,URINE 0-1 /HPF (0-1)
[2024-12-02 21:58] LABS: CREATININE 0.8 mg/dL (0.5-1.0); POTASSIUM 3.4 mmol/L (3.5-5.1)
[2024-12-02] MEDS ORDERED: ondanSETRON 4MG INJ IVP ONE (22:00)
[2024-12-02] MEDS ORDERED: DiphenhydrAMINE HCL 50 MG/ML VIAL IV ONE (22:00)
[2024-12-02 22:01] LABS: COVID19 (SARS ANTIGEN RAPID) PRESUMPTIVE NEGATIVE (NEGATIVE); INFLUENZA TYPE A Negative For Type A (NEGATIVE); INFLUENZA TYPE B Negative For Type B (NEGATIVE)
--- NOTE | 2024-12-02 22:14 | HMCIMG ---
CT HEAD/BRAIN W/O CONTRAST HISTORY: Dizziness and headaches COMPARISON: None TECHNIQUE: Multiple sequential axial images of the head were obtained from the base of the skull through vertex. Patient was not given contrast through intravenous route. FINDINGS: The ventricles and extraventricular CSF spaces are nondilated for patient's age. There is no midline shift, mass effect or herniation. No acute intracranial bleed is seen. Visualized portion of the paranasal sinuses are grossly within normal limits. IMPRESSION: 1. No acute intracranial bleed is seen. CT was performed with one or more following dose reduction techniques: automated exposure control, adjustment of the mA and kv according to patient's size, or use of a iterative reconstruction technique.
--- NOTE | 2024-12-02 22:41 | ERN ---
ED Note History of Present Illness Stated Complaint: C/O HEADACHE X 1 1/2 WKS Chief Complaint: Headache Time Seen by MD: 21:10 Time Seen by Midlevel: 21:10 Dictation: The patient is a 59-year-old female with a history of diabetes, hypertension who presents to the emergency department with complaints of frontal headache associated with dizziness and nausea onset a week and a half ago. Patient reports also in occasional cough that has been going on for a month. Denies any fevers, denies any use of blood thinners, denies any recent falls or head trauma. Allergies: Coded Allergies: No Known Allergies (Unverified Allergy, Unknown, 04/23/21) Home Meds Active Scripts Albuterol Sulfate (Ventolin Hfa/Proventil Hfa/Proair Hfa) 90 Mcg Puff, 2 PUFF IH Q4H for WHEEZING, #1 INHALER 0 Refills Prov:KINGS ROMAN NP 10/24/24 Benzonatate (Tessalon Perles) 100 Mg Cap, 200 MG PO TID for cough, #60 CAP 0 Refills Prov:KINGS ROMAN NP 10/24/24 Cyclobenzaprine HCl (Flexeril) 10 Mg Tab, 10 MG PO TID for muscle sstiffness, #14 TAB 0 Refills Prov:ELISA HUBBARD 07/21/24 Metoclopramide HCl (Reglan 10 mg Tab) 10 Mg Tablet, 1 TAB PO TID for nausea for 7 Days, #21 TAB 0 Refills Prov:MICHAEL LEVINE DO 05/28/24 Prednisone (Prednisone) 20 Mg Tablet, 1 TAB PO DAILY for 6 Days, #6 TAB 0 Refills TAKE 1 TAB BY MOUTH THREE TIMES PER DAY X3 DAYS, THEN TAKE 1 TAB BY MOUTH TWICE A DAY X2 DAYS, THEN TAKE 1 TAB BY MOUTH ONCE A DAY X1 DAY. Prov:MEENAKSHI OSUNA 01/03/23 Albuterol Sulfate (Proair Digihaler) 90 Mcg Aer.pw.bas, 90 MCG IH TID, #1 INHALER Prov:MEENAKSHI OSUNA 01/03/23 Benzonatate (Benzonatate) 200 Mg Capsule, 200 MG PO TID PRN for COUGH for 14 Days, #42 CAP Prov:MEENAKSHI OSUNA V PROPERTY ACCOUNTANT 01/03/23 Cefuroxime Axetil (Cefuroxime) 500 Mg Tablet, 500 MG PO BID for 5 Days, #10 TAB Prov:RANCHO KITCHEN MD 05/07/22 Meclizine HCl (Meclizine HCl) 25 Mg Tablet, 25 MG PO TID PRN for DIZZINESS, #25 TAB Prov:RANCHO KITCHEN MD 05/07/22 Naproxen (Naprosyn) 500 Mg Tablet, 500 MG PO BIDPC, #60 TAB Prov:BEBA PARISH 03/03/22 Gabapentin (Gabapentin) 800 Mg Tablet, 800 MG PO TID, #90 TAB 0 Refills Prov:DARELL CORONA MD 04/23/21 Past Medical History Past Medical History: Diabetes-Type II, Hypertension Additional Past Medical Hx: SEASONAL ALLERGIES Surgical History: Other Surgical History Other: LOWER BACK SX Family History: Negative Social History: Negative, Lives with family History: Not Applicable RN Note Reviewed/Agreed w/PFSH: Yes Review of System Dictation Constitutional: Negative for fever,chills, and weight loss Eyes: Negative for injury, pain,redness, and discharge ENT: Negative for injury,pain or swelling Cardiovascular: Negative for chest pain, palpitations, and edema Respiratory: Negative for shortness of breath, and wheezing, positive for cough Abdomen/GI: Negative for abdominal pain, vomiting, diarrhea, and constipation positive for nausea Back: Negative for injury and pain : Negative for injury, bleeding and discharge MS/Extremity: Negative for injury and deformity Skin: Negative for rash, and discoloration Neuro: Negative for weakness, numbness, tingling, and seizure positive for headache, dizziness Psych: Negative for suicide ideation, homicidal ideation, and hallucinations Initial Vital Sign VS Vital Signs Date Time Temp Pulse Resp B/P (MAP) Pulse Ox O2 Delivery O2 Flow Rate FiO2 12/02/24 21:07 98.4 91 20 135/85 96 Room Air 12/02/24 21:13 0 21 Physical Exam Dictation Vital Signs reviewed General Appearance: Alert, oriented x 3, no acute distress, well developed, nourished. Head and Face: non-traumatic. Eyes: PERRL, pink conjunctivas, eyelid no trauma, anterior chamber with arcus senilis. Ears: Pinnas intact and no signs of trauma or erythema ear canals clear and no discharge TM no erythema Nose: No discharge, no bleeding. Oropharynx: Mouth normal, tongue pink. pharynx clear,no erythema, tonsils no exudates, no abscesses noted, mucous membrane moist Neck: Supple, non-tender, no thyromegaly, no masses, no JVD, no bruits Breast:Deferred Chest:No tenderness, no crepitus, no paradoxical movement, no retractions Lungs:Clear, well-ventilated, symmetric, no rales, no wheezing, no rhonchi, no stridor, good breath sounds bilaterally Heart: Regular rate, regular rhythm, no murmur, no gallops Vascular: no peripheral edema, Abdomen: Soft, positive bowel sounds, nondistended, no guarding, nontender, no rebound, no masses no hepatomegaly, no splenomegaly, no Robles's sign, no hernias. Rectal: Deferred Genital: Deferred Neurological: Normal speech, motor function intact, sensory function intact , upper extremities equal in strength, lower extremities equal in strength Musculoskeletal: Neck nontender, full range of motion, back nontender, full range of motion, Extremities: nontender, full range of motion Skin: Color pink, dry, no turgor, no rash, no lacerations, no abrasions, no contusions. Lymphatic: Deferred Results (Laboratory/Radiology) Laboratory/Radiology Laboratory Tests Test 12/02/24 21:36 12/02/24 21:43 Urine Color COLORLESS (YELLOW) Urine Appearance CLEAR (CLEAR) Urine pH 5.0 (5.0-8.0) Urine Specific [place] 1.007 (1.001-1.031) Urine Protein NEGATIVE mg/dL (NEGATIVE) Urine Glucose (UA) 200 mg/dL (NEGATIVE) H Urine Ketones NEGATIVE mg/dL (NEGATIVE) Urine Occult Blood NEGATIVE (NEGATIVE) Urine Nitrate NEGATIVE (NEGATIVE) Urine Bilirubin NEGATIVE mg/dL (NEGATIVE) Urine Urobilinogen 0.2 mg/dL (0.2-1.0) Urine Leukocyte Esterase NEGATIVE Agustín/uL Urine RBC 0-1 /HPF (0-1) Urine WBC 0-1 /HPF (0-1) Urine Squamous Epithelial Cells RARE /HPF (0-2) Urine Bacteria RARE /HPF (None Seen) Influenza Type A Antigen Negative For Type A Influenza Type B Antigen Negative For Type B SARS-CoV-2 Antigen (Rapid) PRESUMPTIVE NEGATIVE White Blood Count 5.4 K/uL (4.8-10.8) Red Blood Count 4.70 MIL/uL (4.00-5.50) Hemoglobin 14.8 g/dL (12.0-16.0) Hematocrit 42.2 % (36-48) Mean Corpuscular Volume 89.8 fL (79-99) Mean Corpuscular Hemoglobin 31.5 pg (27.0-33.0) Mean Corpuscular Hemoglobin Concent 35.1 g/dL (32.0-36.0) Red Cell Distribution Width 13.1 % (11.0-15.5) Platelet Count 98 K/uL (130-400) L Mean Platelet Volume 12.0 fL (7.5-10.5) H Immature Granulocyte % (Auto) 0.4 % (0-1) Neutrophils (%) (Auto) 64.6 % (40.0-77.0) Lymphocytes (%) (Auto) 26.5 % (21.0-51.0) Monocytes (%) (Auto) 7.2 % (3.0-13.0) Eosinophils (%) (Auto) 0.9 % (0.0-8.0) Basophils (%) (Auto) 0.4 % (0.0-5.0) Neutrophils # (Auto) 3.5 K/uL (1.8-7.7) Lymphocytes # (Auto) 1.4 K/uL (1.0-4.8) Monocytes # (Auto) 0.4 K/uL (0.1-1.0) Eosinophils # (Auto) 0.05 K/uL (0.00-0.70) Basophils # (Auto) 0.02 K/uL (0.00-0.20) Absolute Immature Granulocyte (auto 0.02 K/uL (0-1) Nucleated Red Blood Cells 0.0 % (0.0-0.19) Sodium Level 142 mmol/L (136-145) Potassium Level 3.4 mmol/L (3.5-5.1) L Chloride Level 103 mmol/L (101-111) Carbon Dioxide Level 29 mmol/L (21-32) Blood Urea Nitrogen 15 mg/dL (7-18) Creatinine 0.8 mg/dL (0.5-1.0) Glomerular Filtration Rate Calc 86 mL/min (>90) Random Glucose 257 mg/dL (70-105) H Total Calcium 8.8 mg/dL (8.5-10.1) Total Creatine Kinase 38 U/L (21-232) # Troponin I High Sensitivity 4 ng/L (4-50) REASON: dizzy, headache ORDERING PHYSICIAN: ELISA HUBBARD PROCEDURE: HEAD WO - CT HEAD/BRAIN W/O CONTRAST CT HEAD/BRAIN W/O CONTRAST HISTORY: Dizziness and headaches COMPARISON: None TECHNIQUE: Multiple sequential axial images of the head were obtained from the base of the skull through vertex. Patient was not given contrast through intravenous route. FINDINGS: The ventricles and extraventricular CSF spaces are nondilated for patient's age. There is no midline shift, mass effect or herniation. No acute intracranial bleed is seen. Visualized portion of the paranasal sinuses are grossly within normal limits. IMPRESSION: 1. No acute intracranial bleed is seen. CT was performed with one or more following dose reduction techniques: automated exposure control, adjustment of the mA and kv according to patient's size, or use of a iterative reconstruction technique. Labs Reviewed?: Yes EKG: (+) rhythm (Sinus rhythm) EKG Comment: Date:12/02/2024 Time:2131 Ventricular rate:92 VT interval:140 QRS duration:99 QT/QTc:373 EKG interpretation: Sinus rhythm Reviewed by ED Attending no STEMI ED Course ED Course Orders Procedure Category Date Status Time Cbc With Differential LAB 12/02/24 Complete 21:24 Chest 1vw RAD 12/02/24 Taken 21:24 12 Lead Ekg Tracing- EKG 12/02/24 Logged Technical 21:24 0.9%Nacl 1000ml (Ns PHA 12/02/24 Complete 1000ml) 21:30 Creatine Kinase, Total LAB 12/02/24 Complete 21:24 Troponin I High LAB 12/02/24 Complete Sensitivity 21:24 Basic Metabolic Panel LAB 12/02/24 Complete 21:24 Covid19 (Sars Antigen LAB 12/02/24 Complete Rapid) 21:24 Influenza Type A & B, LAB 12/02/24 Complete Rapid 21:24 Acetaminophen 500mg PHA 12/02/24 Complete Tab (Tylenol 500mg T 21:30 Ct Head/Brain W/O CT 12/02/24 Resulted Contrast 21:24 Urinalysis Profile LAB 12/02/24 Complete 21:24 Ondansetron 4mg Inj PHA 12/02/24 Complete (Zofran 4mg Inj) 22:00 Diphenhydramine Hcl PHA 12/02/24 Complete (Benadryl Inj) 22:00 Current Medications Medications (Trade) Dose Ordered Sig/Stacy Route PRN Reason Start Time Stop Time Status Last Admin Dose Admin Acetaminophen (TYLenol 500MG TAB) 1,000 mg ONCE ONCE PO 12/02/24 21:30 12/02/24 21:31 DC 12/02/24 21:46 Diphenhydramine HCl (BENAdryl INJ) 25 mg ONCE ONCE IV 12/02/24 22:00 12/02/24 21:56 DC Ondansetron HCl (zoFRAN 4MG INJ) 4 mg ONCE ONCE IVP 12/02/24 22:00 12/02/24 21:56 DC Sodium Chloride 1,000 ml @ 0 mls/hr ONCE ONCE IV 12/02/24 21:30 12/02/24 21:31 DC 12/02/24 21:46 Vital Signs Date Time Temp Pulse Resp B/P (MAP) Pulse Ox O2 Delivery O2 Flow Rate FiO2 12/02/24 21:13 98.4 88 16 135/82 96 Room Air* 0 21 12/02/24 21:07 98.4 91 20 135/85 96 Room Air Medical Decision Making MDM The patient is a 59-year-old female with a history of diabetes, hypertension who presents to the emergency department with complaints of frontal headache associated with dizziness and nausea onset a week and a half ago. Patient reports also in occasional cough that has been going on for a month. Denies any fevers, denies any use of blood thinners, denies any recent falls or head trauma. CBC showed no leukocytosis, no anemia, mild thrombocytopenia, chemistry showed mild hypokalemia, glucose of 257, no DKA patient received a L of fluids in ER. Urinalysis unremarkable, serology negative. CT head showed no acute pathology, chest x-ray unremarkable. On physical exam patient continues in no acute distress, patient reports improving in pain with IV fluids and Tylenol. Patient continues neurologically intact. Stable vital signs. Patient instructed to follow up with primary doctor. Labs and imaging discussed with the patient who agrees to be discharged. Differential diagnosis: Tension headache, dehydration, ACS, intracerebral hemorrhage Need for hospitalization: Patient does not meet criteria for hospitalization. There are no social concerns with this patient. DX & DISP Disposition: Discharge Departure Impression: Primary Impression: Headache Additional Impression: Uncontrolled diabetes mellitus with hyperglycemia Condition: Stable Additional Instructions: Please follow up with the primary doctor in 1-2 days. If symptoms worsen please return to ER. FOLLOW-UP WITH PRIMARY CARE PROVIDER IN 1 TO 2 DAYS. TAKE MEDICATIONS DIRECTED HERE IN THE EMERGENCY ROOM. OKAY TO CONTINUE HOME MEDICATIONS UNLESS OTHERWISE DISCUSSED DURING YOUR VISIT IN THE EMERGENCY ROOM TODAY. RETURN TO YOUR NEAREST EMERGENCY ROOM IF SYMPTOMS WORSEN OR IF THERE IS NO IMPROVEMENT. CALL 911 IF YOU NEED IMMEDIATE ASSISTANCE. TAKE TYLENOL OR MOTRIN [id number] NEEDED AND IF NO CONTRAINDICATIONS ARE PRESENT. INCREASE ORAL HYDRATION. A WOUND CULTURE OR URINE CULTURE WAS ORDERED HERE IN THE [facility] ROOM DEPARTMENT PLEASE FOLLOW-UP WITH PRIMARY CARE PROVIDER AND ADVISE THEM TO GET REPEAT PORTS FROM OUR FACILITY. IF YOU HAD ANY ASHUTOSH WRAP/SPLINTS THAT WERE APPLIED HERE, PLEASE DO NOT REMOVE THEM UNTIL YOU SEE YOUR PRIMARY CARE OR SPECIALTY. Time of Disposition: 22:40 I have reviewed the case, and I agree with, Diagnosis and Plan ELISA HUBBARD PROPERTY ACCOUNTANT Dec 02, 2024 22:41
--- NOTE | 2024-12-03 06:34 | EKG ---
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
--- NOTE | 2024-12-03 08:23 | HMCIMG ---
Exam Type: CHEST 1VW Clinical Information: cough Comparison: None Findings: The lungs are clear of infiltrates. The heart is normal in size. The bony and soft tissue structures of the chest are unremarkable. Impression: Clear lungs.
== END 2024-12-02 22:49 | disposition home or self-care (01) ==
LOC: EDH 21:05
DX: R51.9 Headache, unspecified (principal); E11.65 Type 2 diabetes mellitus with hyperglycemia; I10 Essential (primary) hypertension; Z79.52 Long term (current) use of systemic steroids; Z79.899 Other long term (current) drug therapy; Z20.822 Contact with and (suspected) exposure to COVID-19
CPT/HCPCS: 99284; 96360; 70450; 71045; 87426; 82550; 84484; 80048; 85025; 87804 ×2; 81001; 36415; 93005; J7030

== ENCOUNTER 2025-01-22 15:33 | Emergency (ER) | payer BC ==
[~2025-01-22] VITALS: Ht 162.6 cm; Wt 103.4 kg
[2025-01-22 17:16] LABS: APPEARANCE,URINE CLEAR (CLEAR); GLUCOSE, URINE (UA) >=1000 mg/dL (NEGATIVE); LEUKOCYTE ESTERASE ,URINE NEGATIVE Leu/uL (NEGATIVE); NITRATE,URINE NEGATIVE (NEGATIVE); OCCULT BLOOD,URINE NEGATIVE (NEGATIVE)
[2025-01-22 17:17] LABS: ADD UA MICROSCOPIC YES; SQUAMOUS EPITHELIAL CELL,UR FEW /HPF (0-2)
[2025-01-22 17:18] LABS: IMMATURE GRANULOCYTE ABSOLUTE 0.01 K/uL (0-1); NUCLEATED RED BLOOD CELLS 0.0 % (0.0-0.19); PLATELET COUNT (AUTO) 82 K/uL (130-400); RED BLOOD CELL COUNT(AUTO) 4.68 MIL/uL (4.00-5.50); RED CELL DISTRIBUTION WIDTH 14.0 % (11.0-15.5); WHITE BLOOD COUNT (AUTO) 4.5 K/uL (4.8-10.8)
[2025-01-22 17:27] LABS: CREATININE 0.9 mg/dL (0.5-1.0); GLOMERULAR FILTR. RATE CALC 75.0 mL/min (>90); GLUCOSE,RANDOM 317.0 mg/dL (70-105); SODIUM SERUM 139.0 mmol/L (136-145); UREA NITROGEN, BLOOD 13.0 mg/dL (7-18)
[2025-01-22] MEDS ORDERED: KETO10TA2 PO (18:41)
--- NOTE | 2025-01-22 18:42 | ERN ---
General Chief Complaint: Flank Pain Stated Complaint: FLANK PAIN Time Seen by MD: 15:35 Time Seen by Midlevel: 15:35 Source: patient History of Present Illness Initial Comments Patient is a 59-year-old female presenting to the emergency department for evaluation of bilateral flank pain and lower abdominal pain that started four days ago pain is reproducible with movement. Denies any direct injury or fall. Denies any dysuria, hematuria, fever, chills, nausea, vomiting, or any other symptoms at this time Allergies: Coded Allergies: No Known Allergies (Unverified Allergy, Unknown, 04/23/21) Home Meds Active Scripts Ketorolac Tromethamine (Ketorolac Tromethamine) 10 Mg Tablet, 1 TAB PO BID for pain for 5 Days, #10 TAB 0 Refills Prov:SUDARSHAN CORBETT 01/22/25 Albuterol Sulfate (Ventolin Hfa/Proventil Hfa/Proair Hfa) 90 Mcg Puff, 2 PUFF IH Q4H for WHEEZING, #1 INHALER 0 Refills Prov:KINGS ROMAN NP 10/24/24 Benzonatate (Tessalon Perles) 100 Mg Cap, 200 MG PO TID for cough, #60 CAP 0 Refills Prov:KINGS ROMAN NP 10/24/24 Cyclobenzaprine HCl (Flexeril) 10 Mg Tab, 10 MG PO TID for muscle sstiffness, #14 TAB 0 Refills Prov:ELISA HUBBARDP 07/21/24 Metoclopramide HCl (Reglan 10 mg Tab) 10 Mg Tablet, 1 TAB PO TID for nausea for 7 Days, #21 TAB 0 Refills Prov:MICHAEL LEVINE DO 05/28/24 Prednisone (Prednisone) 20 Mg Tablet, 1 TAB PO DAILY for 6 Days, #6 TAB 0 Refills TAKE 1 TAB BY MOUTH THREE TIMES PER DAY X3 DAYS, THEN TAKE 1 TAB BY MOUTH TWICE A DAY X2 DAYS, THEN TAKE 1 TAB BY MOUTH ONCE A DAY X1 DAY. Prov:MEENAKSHI OSUNA V SALES AND LEASING CONSULTANT 01/03/23 Albuterol Sulfate (Proair Digihaler) 90 Mcg Aer.pw.bas, 90 MCG IH TID, #1 INHALER Prov:MEENAKSHI OSUNA V SALES AND LEASING CONSULTANT 01/03/23 Benzonatate (Benzonatate) 200 Mg Capsule, 200 MG PO TID PRN for COUGH for 14 Days, #42 CAP Prov:MEENAKSHI OSUNA V SALES AND LEASING CONSULTANT 01/03/23 Cefuroxime Axetil (Cefuroxime) 500 Mg Tablet, 500 MG PO BID for 5 Days, #10 TAB Prov:RANCHO KITCHEN MD 05/07/22 Meclizine HCl (Meclizine HCl) 25 Mg Tablet, 25 MG PO TID PRN for DIZZINESS, #25 TAB Prov:RANCHO KITCHEN MD 05/07/22 Naproxen (Naprosyn) 500 Mg Tablet, 500 MG PO BIDPC, #60 TAB Prov:BEBA PARISH 03/03/22 Gabapentin (Gabapentin) 800 Mg Tablet, 800 MG PO TID, #90 TAB 0 Refills Prov:DARELL CORONA MD 04/23/21 Past Medical History Past Medical History: Diabetes-Type II, Hypertension Medical History Other: SEASONAL ALLERGIES Past Surgical History: Other Surgical History Other: LOWER BACK SX Family History Family History: Negative Social History Social History: Negative, Lives with family Female( History) History: Not Applicable ROS Dictation CONSTITUTIONAL: Negative except for HPI HEAD/FACE: Negative except for HPI EENT: Negative except for HPI RESPIRATORY: Negative except for HPI GASTROINTESTINAL/ABDOMINAL: Negative except for HPI GENITOURINARY: Negative except for HPI MUSCULOSKELETAL: Negative except for HPI INTEGUMENTARY: Negative except for HPI NEUROLOGICAL/PSYCH: Negative except for HPI HEMATOLOGIC/LYMPHATIC: Negative except for HPI All Systems Negative, Except as noted above. 13 point review of systems assessed and all negative except for above. Physical Exam Physical Exam Dictation Vital Signs reviewed General Appearance: Alert, oriented x 3, no acute distress, well developed, nourished. Head and Face: non-traumatic. Eyes: PERRL, pink conjunctivas, eyelid no trauma, anterior chamber with arcus senilis. Ears: Pinnas intact and no signs of trauma or erythema ear canals clear and no discharge TM no erythema Nose: No discharge, no bleeding. Oropharynx: Mouth normal, tongue pink, pharynx clear,no erythema, tonsils no exudates, no abscesses noted, mucous membrane moist Neck: Supple, non-tender, no thyromegaly, no masses, no JVD, no bruits Breast:Deferred Chest:No tenderness, no crepitus, no paradoxical movement, no retractions Lungs:Clear, well-ventilated, symmetric, no rales, no wheezing, no rhonchi, no stridor, good breath sounds bilaterally Heart: Regular rate, regular rhythm, no murmur, no gallops Vascular: no peripheral edema, Abdomen: Soft, positive bowel sounds, nondistended, no guarding, nontender, no rebound, no masses no hepatomegaly, no splenomegaly, no Robles's sign, no hernias. Rectal: Deferred Genital: Deferred Neurological: Normal speech, motor function intact, sensory function intact Musculoskeletal: Neck nontender, full range of motion, back nontender, full range of motion, Extremities: nontender, full range of motion Skin: Color pink, dry, no turgor, no rash, no lacerations, no abrasions, no contusions. Lymphatic: Deferred Results Laboratory and Microbiology Lab and Micro Result Laboratory Tests Test 01/22/25 16:43 01/22/25 17:10 Urine Color LIGHT-YELLOW (YELLOW) Urine Appearance CLEAR (CLEAR) Urine pH 6.0 (5.0-8.0) Urine Specific [place] 1.034 (1.001-1.031) Urine Protein NEGATIVE mg/dL (NEGATIVE) Urine Glucose (UA) >=1000 mg/dL (NEGATIVE) H Urine Ketones 5 mg/dL (NEGATIVE) H Urine Occult Blood NEGATIVE (NEGATIVE) Urine Nitrate NEGATIVE (NEGATIVE) Urine Bilirubin NEGATIVE mg/dL (NEGATIVE) Urine Urobilinogen 0.2 mg/dL (0.2-1.0) Urine Leukocyte Esterase NEGATIVE Agustín/uL Urine RBC 2-5 /HPF (0-1) H Urine WBC 0-1 /HPF (0-1) Urine Squamous Epithelial Cells FEW /HPF (0-2) Urine Bacteria None /HPF (None Seen) White Blood Count 4.5 K/uL (4.8-10.8) L Red Blood Count 4.68 MIL/uL (4.00-5.50) Hemoglobin 15.3 g/dL (12.0-16.0) Hematocrit 43.3 % (36-48) Mean Corpuscular Volume 92.5 fL (79-99) Mean Corpuscular Hemoglobin 32.7 pg (27.0-33.0) Mean Corpuscular Hemoglobin Concent 35.3 g/dL (32.0-36.0) Red Cell Distribution Width 14.0 % (11.0-15.5) Platelet Count 82 K/uL (130-400) L Mean Platelet Volume 12.0 fL (7.5-10.5) H Immature Granulocyte % (Auto) 0.2 % (0-1) Neutrophils (%) (Auto) 72.3 % (40.0-77.0) Lymphocytes (%) (Auto) 18.8 % (21.0-51.0) L Monocytes (%) (Auto) 6.5 % (3.0-13.0) Eosinophils (%) (Auto) 1.8 % (0.0-8.0) Basophils (%) (Auto) 0.4 % (0.0-5.0) Neutrophils # (Auto) 3.2 K/uL (1.8-7.7) Lymphocytes # (Auto) 0.8 K/uL (1.0-4.8) L Monocytes # (Auto) 0.3 K/uL (0.1-1.0) Eosinophils # (Auto) 0.08 K/uL (0.00-0.70) Basophils # (Auto) 0.02 K/uL (0.00-0.20) Absolute Immature Granulocyte (auto 0.01 K/uL (0-1) Nucleated Red Blood Cells 0.0 % (0.0-0.19) Sodium Level 139 mmol/L (136-145) Potassium Level 4.0 mmol/L (3.5-5.1) Chloride Level 104 mmol/L (101-111) Carbon Dioxide Level 30 mmol/L (21-32) Blood Urea Nitrogen 13 mg/dL (7-18) Creatinine 0.9 mg/dL (0.5-1.0) Glomerular Filtration Rate Calc 75 mL/min (>90) Random Glucose 317 mg/dL (70-105) H Total Calcium 8.6 mg/dL (8.5-10.1) Labs Reviewed?: Yes MDM MDM: Differential diagnosis: Urinary tract infection, pyelonephritis, musculoskeletal pain, lumbar strain There are no social concerns with this patient. Prescription drug management Prescriptions will include: Toradol Medical management and examination interpretation discussions were had by me with other qualified healthcare professionals as indicated for the patient's care. ED Course Orders Procedure Category Date Status Time Cbc With Differential LAB 01/22/25 Complete 16:25 Basic Metabolic Panel LAB 01/22/25 Complete 16:25 Urinalysis Profile LAB 01/22/25 Complete 16:25 Ketorolac PHA 01/22/25 Complete Tromethamine 15mg/Ml 17:30 Morphine 2mg Syg PHA 01/22/25 Complete (Morphine 2mg Syg) 17:30 Ondansetron 4mg Inj PHA 01/22/25 Complete (Zofran 4mg Inj) 17:30 Lumbar Spine 2-3vws RAD 01/22/25 Resulted 17:36 Current Medications Medications (Trade) Dose Ordered Sig/Stacy Route PRN Reason Start Time Stop Time Status Last Admin Dose Admin Ketorolac Tromethamine (toRADol) 15 mg ONCE IV 01/22/25 17:30 01/22/25 18:52 DC 01/22/25 17:38 Morphine Sulfate (morPHINE 2MG SYG) 2 mg ONCE IVP 01/22/25 17:30 01/22/25 18:52 DC 01/22/25 17:39 Ondansetron HCl (zoFRAN 4MG INJ) 4 mg ONCE IVP 01/22/25 17:30 01/22/25 18:52 DC 01/22/25 17:37 Vital Signs Date Time Temp Pulse Resp B/P (MAP) Pulse Ox O2 Delivery O2 Flow Rate FiO2 01/22/25 18:46 98.2 80 18 151/65 97 Room Air* 0 21 01/22/25 15:34 98.2 82 18 159/69 97 Room Air DX & DISP Disposition: Discharge Departure Impression: Primary Impression: Bilateral lumbar radiculopathy Condition: Stable Scripts Ketorolac Tromethamine (Ketorolac Tromethamine) 10 Mg Tablet 1 TAB PO BID for pain for 5 Days, #10 TAB 0 Refills Prov: SUDARSHAN CORBETT 01/22/25 Referrals: PEYMAN COX MD (PCP) Time of Disposition: 18:41 I have reviewed the case, and I agree with, Diagnosis and Plan I performed the substantive portion of the visit. I have reviewed and personally made and approve the management plan that is documented in the note by myself or the ERIK. I acknowledge for responsibility for the patient's management plan. SUDARSHAN CORBETT Jan 22, 2025 18:42
[2025-01-22 18:46] VITALS: BP 151/65; PULSE 80; RESP 18; TEMP 98.2; O2SAT 97
--- NOTE | 2025-01-22 19:02 | HMCIMG ---
EXAM: CR Lumbar Spine, 3 View. CLINICAL HISTORY: r/o fx COMPARISON: None provided. FINDINGS: BONES: No acute fracture or aggressive appearing osseous lesion. The bony structures appear demineralized. 6 lumbar-type vertebral bodies. L5-L6 posterior interbody fusion hardware in place without evidence of hardware loosening or failure. Minimal grade 1 posterior listhesis L3 over L4. Mild loss of the L3-L4 disc space. SOFT TISSUES: The soft tissues are unremarkable. Right upper quadrant probable cholecystectomy surgical clips. There are a few small calcifications projecting within the expected region of right kidney. IMPRESSION: 1. No acute osseous injury. 2. L5-L6 posterior interbody fusion hardware, intact. 3. Minimal grade 1 posterior listhesis L3 over L4. 4. Lumbarization of S1. 5. Osteopenia. If there is high clinical concern for an acute fracture recommend a CT versus MRI for further evaluation. 6. Small calcifications project in the expected region of the right kidney. Nephrolithiasis not excluded. /Lynch
== END 2025-01-22 18:51 | disposition home or self-care (01) ==
LOC: EDH 15:33
DX: M54.16 Radiculopathy, lumbar region (principal); E11.9 Type 2 diabetes mellitus without complications; I10 Essential (primary) hypertension; Z79.52 Long term (current) use of systemic steroids; Z79.899 Other long term (current) drug therapy
CPT/HCPCS: 99284; 96374; 96375; 80048; 85025; 81001; 36415; 72100; J1885; J2270; J2405

== ENCOUNTER 2025-03-14 15:48 | Emergency (ER) | payer BC ==
[~2025-03-14] VITALS: Ht 162.6 cm; Wt 89.8 kg
[~2025-03-14 15:48] MED LIST changes: +KETO10TA2 PO
[2025-03-14 16:14] LABS: GLUCOSE, URINE (UA) >=1000 mg/dL (NEGATIVE); LEUKOCYTE ESTERASE ,URINE 75 Leu/uL (NEGATIVE); NITRATE,URINE NEGATIVE (NEGATIVE); OCCULT BLOOD,URINE NEGATIVE (NEGATIVE)
[2025-03-14 16:21] LABS: ADD UA MICROSCOPIC YES; APPEARANCE,URINE HAZY (CLEAR)
[2025-03-14 16:22] LABS: SQUAMOUS EPITHELIAL CELL,UR MANY /HPF (0-2)
[2025-03-14] MEDS: 0.9%NACL 1000ML 1,000 ML IV STA (16:27)
[2025-03-14 16:28] LABS: IMMATURE GRANULOCYTE ABSOLUTE 0.01 K/uL (0-1); NUCLEATED RED BLOOD CELLS 0.0 % (0.0-0.19); PLATELET COUNT (AUTO) 83 K/uL (130-400); RED BLOOD CELL COUNT(AUTO) 5.03 MIL/uL (4.00-5.50); RED CELL DISTRIBUTION WIDTH 13.1 % (11.0-15.5); WHITE BLOOD COUNT (AUTO) 7.4 K/uL (4.8-10.8)
[2025-03-14 16:37] LABS: CREATININE 1.1 mg/dL (0.5-1.0); GLOMERULAR FILTR. RATE CALC 59.0 mL/min (>90); GLUCOSE,RANDOM 370.0 mg/dL (70-105); SODIUM SERUM 131.0 mmol/L (136-145); UREA NITROGEN, BLOOD 22.0 mg/dL (7-18)
--- NOTE | 2025-03-14 16:45 | EKG ---
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
[2025-03-14 16:46] LABS: ASPARTATE AMINOTRANSFERASE 32.0 U/L (10-37); TOTAL PROTEIN, SERUM 7.0 g/dL (6.0-8.3)
--- NOTE | 2025-03-14 18:41 | ERN ---
ED Note History of Present Illness Stated Complaint: ABD PAIN/NAUSEA/VOMITING Chief Complaint: Abdominal Pain Time Seen by MD: 16:10 Time Seen by Midlevel: 16:15 Dictation: 59-YEAR-OLD FEMALE WITH A HISTORY OF DIABETES COMING IN WITH COMPLAINTS OF GENE RALIZED WEAKNESS AND DIARRHEA SINCE SATURDAY. PATIENT HAS A COMPLAINING OF EPIGASTRIC PAIN. PATIENT ALSO STATES THIS IS HER 2ND DOSE OF MOUNJARO THAT SHE TAKES. DENIES ANY FEVER, NAUSEA OR VOMITING. DENIES ANY BLOOD IN STOOL. Allergies: Coded Allergies: No Known Allergies (Unverified Allergy, Unknown, 04/23/21) Home Meds Active Scripts Ketorolac Tromethamine (Ketorolac Tromethamine) 10 Mg Tablet, 1 TAB PO BID for pain for 5 Days, #10 TAB 0 Refills Prov:SUDARSHAN CORBETT 01/22/25 Albuterol Sulfate (Ventolin Hfa/Proventil Hfa/Proair Hfa) 90 Mcg Puff, 2 PUFF IH Q4H for WHEEZING, #1 INHALER 0 Refills Prov:KINGS ROMAN NP 10/24/24 Benzonatate (Tessalon Perles) 100 Mg Cap, 200 MG PO TID for cough, #60 CAP 0 Refills Prov:KINGS ROMAN NP 10/24/24 Cyclobenzaprine HCl (Flexeril) 10 Mg Tab, 10 MG PO TID for muscle sstiffness, #14 TAB 0 Refills Prov:ELISA HUBBARD 07/21/24 Metoclopramide HCl (Reglan 10 mg Tab) 10 Mg Tablet, 1 TAB PO TID for nausea for 7 Days, #21 TAB 0 Refills Prov:MICHAEL LEVINE DO 05/28/24 Prednisone (Prednisone) 20 Mg Tablet, 1 TAB PO DAILY for 6 Days, #6 TAB 0 Refills TAKE 1 TAB BY MOUTH THREE TIMES PER DAY X3 DAYS, THEN TAKE 1 TAB BY MOUTH TWICE A DAY X2 DAYS, THEN TAKE 1 TAB BY MOUTH ONCE A DAY X1 DAY. Prov:MEENAKSHI OSUNA V WAITER 01/03/23 Albuterol Sulfate (Proair Digihaler) 90 Mcg Aer.pw.bas, 90 MCG IH TID, #1 INHALER Prov:MEENAKSHI OSUNA V WAITER 01/03/23 Benzonatate (Benzonatate) 200 Mg Capsule, 200 MG PO TID PRN for COUGH for 14 Days, #42 CAP Prov:THAOMEENAKSHI MIGUEL V WAITER 01/03/23 Cefuroxime Axetil (Cefuroxime) 500 Mg Tablet, 500 MG PO BID for 5 Days, #10 TAB Prov:RANCHO KITCHEN MD 05/07/22 Meclizine HCl (Meclizine HCl) 25 Mg Tablet, 25 MG PO TID PRN for DIZZINESS, #25 TAB Prov:RANCHO KITCHEN MD 05/07/22 Naproxen (Naprosyn) 500 Mg Tablet, 500 MG PO BIDPC, #60 TAB Prov:BEBA PARISH 03/03/22 Gabapentin (Gabapentin) 800 Mg Tablet, 800 MG PO TID, #90 TAB 0 Refills Prov:DARELL CORONA MD 04/23/21 Past Medical History Past Medical History: Anxiety, Diabetes-Type II, Hypertension Additional Past Medical Hx: SEASONAL ALLERGIES Surgical History: Other Surgical History Other: LOWER BACK SX Family History: Negative Social History: Negative, Lives with family History: Not Applicable Review of System Dictation CONSTITUTIONAL: GENERALIZED BODY WEAKNESS EYES: NEGATIVE FOR INJURY, PAIN,REDNESS, AND DISCHARGE ENT: NEGATIVE FOR INJURY,PAIN OR SWELLING CARDIOVASCULAR: NEGATIVE FOR CHEST PAIN, PALPITATIONS, AND EDEMA RESPIRATORY: NEGATIVE FOR SHORTNESS OF BREATH, COUGH, AND WHEEZING, ABDOMEN/GI: POSITIVE FOR EPIGASTRIC PAIN WITH DIARRHEA BACK: NEGATIVE FOR INJURY AND PAIN : NEGATIVE FOR INJURY, BLEEDING AND DISCHARGE MS/EXTREMITY: NEGATIVE FOR INJURY AND DEFORMITY SKIN: NEGATIVE FOR RASH, AND DISCOLORATION NEURO: NEGATIVE FOR HEADACHE, WEAKNESS, NUMBNESS, TINGLING, AND SEIZURE PSYCH: NEGATIVE FOR SUICIDE IDEATION, HOMICIDAL IDEATION, AND HALLUCINATIONS Review of Systems: was completed Initial Vital Sign VS Vital Signs Date Time Temp Pulse Resp B/P (MAP) Pulse Ox O2 Delivery O2 Flow Rate FiO2 03/14/25 15:51 98.1 102 22 136/85 94 Nasal Cannula 0 03/14/25 16:51 21 Physical Exam Dictation GENERAL: AWAKE, ALERT, NAD HEAD/FACE: NORMOCEPHALIC, ATRAUMATIC EYES: PERRL, EOMI, VISION AT BASELINE ENT: ORAL CAVITY CLEAR, TMS CLEAR, NO SIGNS OF INFECTION NECK: TRACHEA MIDLINE, SUPPLE, NO NUCHAL RIGIDITY CARDIOVASCULAR: RRR, NORMAL S1/S2, NO MRGS, NO JVD RESPIRATORY: CTAB, NO RESPIRATORY DISTRESS, NO RALES OR WHEEZES ABDOMEN: SOFT, NON-TENDER, NON-DISTENDED, NORMAL BOWEL SOUNDS, NO GUARDING OR REBOUND. SKIN: WARM, DRY, NORMAL TURGOR, NO RASH MS/EXTREMITY: PULSES EQUAL, NO CYANOSIS, NEUROVASCULAR INTACT, FROM NEURO: COAX4, GCS 15, STRENGTH 5/5, CN 2-12 INTACT, NORMAL CEREBELLAR EXAM, NORMAL GAIT, PSYCH: NORMAL BEHAVIOR, MOOD, AND AFFECT NORMAL Results (Laboratory/Radiology) Laboratory/Radiology Laboratory Tests Test 03/14/25 16:07 03/14/25 16:20 Urine Color DARK-YELLOW (YELLOW) Urine Appearance HAZY (CLEAR) Urine pH 6.0 (5.0-8.0) Urine Specific [place] 1.032 (1.001-1.031) Urine Protein 30 mg/dL (NEGATIVE) H Urine Glucose (UA) >=1000 mg/dL (NEGATIVE) H Urine Ketones 5 mg/dL (NEGATIVE) H Urine Occult Blood NEGATIVE (NEGATIVE) Urine Nitrate NEGATIVE (NEGATIVE) Urine Bilirubin 1 mg/dL (NEGATIVE) H Urine Urobilinogen 4.0 mg/dL (0.2-1.0) H Urine Leukocyte Esterase 75 Agustín/uL (NEGATIVE) H Urine RBC 2-5 /HPF (0-1) H Urine WBC 11-25 /HPF (0-1) H Urine Squamous Epithelial Cells MANY /HPF (0-2) Urine Bacteria FEW /HPF (None Seen) Urine Hyaline Casts 2-5 /LPF (0-1 /LPF) H White Blood Count 7.4 K/uL (4.8-10.8) Red Blood Count 5.03 MIL/uL (4.00-5.50) Hemoglobin 16.1 g/dL (12.0-16.0) H Hematocrit 45.7 % (36-48) Mean Corpuscular Volume 90.9 fL (79-99) Mean Corpuscular Hemoglobin 32.0 pg (27.0-33.0) Mean Corpuscular Hemoglobin Concent 35.2 g/dL (32.0-36.0) Red Cell Distribution Width 13.1 % (11.0-15.5) Platelet Count 83 K/uL (130-400) L Mean Platelet Volume 12.2 fL (7.5-10.5) H Immature Granulocyte % (Auto) 0.1 % (0-1) Neutrophils (%) (Auto) 76.7 % (40.0-77.0) Lymphocytes (%) (Auto) 13.8 % (21.0-51.0) L Monocytes (%) (Auto) 6.6 % (3.0-13.0) Eosinophils (%) (Auto) 2.4 % (0.0-8.0) Basophils (%) (Auto) 0.4 % (0.0-5.0) Neutrophils # (Auto) 5.7 K/uL (1.8-7.7) Lymphocytes # (Auto) 1.0 K/uL (1.0-4.8) Monocytes # (Auto) 0.5 K/uL (0.1-1.0) Eosinophils # (Auto) 0.18 K/uL (0.00-0.70) Basophils # (Auto) 0.03 K/uL (0.00-0.20) Absolute Immature Granulocyte (auto 0.01 K/uL (0-1) Nucleated Red Blood Cells 0.0 % (0.0-0.19) Sodium Level 131 mmol/L (136-145) L Potassium Level 3.6 mmol/L (3.5-5.1) Chloride Level 98 mmol/L (101-111) L Carbon Dioxide Level 21 mmol/L (21-32) Blood Urea Nitrogen 22 mg/dL (7-18) H Creatinine 1.1 mg/dL (0.5-1.0) H Glomerular Filtration Rate Calc 59 mL/min (>90) Random Glucose 370 mg/dL (70-105) H Total Calcium 8.7 mg/dL (8.5-10.1) Total Bilirubin 2.5 mg/dL (0.2-1.0) H Direct Bilirubin 0.7 mg/dL (0.0-0.3) H Aspartate Amino Transf (AST/SGOT) 32 U/L (10-37) Alanine Aminotransferase (ALT/SGPT) 55 U/L (12-78) Alkaline Phosphatase 88 U/L (50-136) Troponin I High Sensitivity 5 ng/L (4-50) Total Protein 7.0 g/dL (6.0-8.3) Albumin 3.2 g/dL (3.5-5.0) L Lipase 47 U/L (16-77) Labs Reviewed?: Yes ED Course ED Course Orders Procedure Category Date Status Time 12 Lead Ekg Tracing- EKG 03/14/25 Complete Technical 16:05 Basic Metabolic Panel LAB 03/14/25 Complete 16:05 Cbc With Differential LAB 03/14/25 Complete 16:05 Hepatic Function Panel LAB 03/14/25 Complete 16:05 Urinalysis Profile LAB 03/14/25 Complete 16:05 Troponin I High LAB 03/14/25 Complete Sensitivity 16:05 Lipase LAB 03/14/25 Complete 16:05 0.9%Nacl 1000ml (Ns PHA 03/14/25 Complete 1000ml) 16:13 Ondansetron 4mg Inj PHA 03/14/25 Complete (Zofran 4mg Inj) 16:13 Culture Urine GUILLE 03/14/25 In Process 16:21 Us Abdominal Ruq\Ltd 03/14/25 Resulted 17:51 Methocarbamol PHA 03/14/25 Complete (Methocarbamol) 17:51 Ondansetron 4mg Inj PHA 03/14/25 Logged (Zofran 4mg Inj) 21:00 Famotidine 20mg Vial PHA 03/14/25 Logged (Pepcid 20mg Vial) 21:00 Lidocaine Hcl 2% PHA 03/14/25 Logged Viscous (Lidocaine Hcl 21:00 Mag/Alum/Simeth 30ml PHA 03/14/25 Logged (Maalox Plus 30ml) 21:00 Dicyclomine Hcl PHA 03/14/25 Logged (Bentyl 10mg/5ml 21:00 Current Medications Medications (Trade) Dose Ordered Sig/Stacy Route PRN Reason Start Time Stop Time Status Last Admin Dose Admin Al Hydroxide/Mg Hydroxide (MAALox PLUS 30ML) 30 ml ONCE ONCE PO 03/14/25 21:00 03/14/25 21:01 UNV Dicyclomine HCl (Bentyl 10mg/5ml Syrup) 10 mg ONCE ONCE PO 03/14/25 21:00 03/14/25 21:01 UNV Famotidine (Pepcid 20mg Vial) 20 mg ONCE ONCE IV 03/14/25 21:00 03/14/25 21:01 UNV Lidocaine HCl (Lidocaine HCl 2% Viscous) 10 ml ONCE ONCE PO 03/14/25 21:00 03/14/25 21:01 UNV Methocarbamol (methoCARBamol) 500 mg ONCE STAT PO 03/14/25 17:51 03/14/25 17:52 DC 03/14/25 18:15 Ondansetron HCl (zoFRAN 4MG INJ) 4 mg ONCE ONCE IVP 03/14/25 21:00 03/14/25 21:01 UNV Ondansetron HCl (zoFRAN 4MG INJ) 4 mg ONCE STAT IVP 03/14/25 16:13 03/14/25 16:15 DC 03/14/25 16:27 Sodium Chloride 1,000 ml @ 1,000 mls/hr Q1H STAT IV 03/14/25 16:13 03/14/25 17:12 DC 03/14/25 16:27 Vital Signs Date Time Temp Pulse Resp B/P (MAP) Pulse Ox O2 Delivery O2 Flow Rate FiO2 03/14/25 19:40 98.2 82 18 125/85 96 Room Air* 0 03/14/25 17:45 98.1 88 18 128/77 94 Room Air* 0 03/14/25 16:51 98.1 90 18 108/62 94 Room Air* 0 03/14/25 15:51 98.1 102 22 136/85 94 Nasal Cannula 0 Medical Decision Making MDM MDM: Patient signed out to me by AGUEDA cutler. Findings are consistent with liver disease. Patient does history of fatty liver disease. Patient is on her 2nd dose of tirzepatide which explains her symptoms. Patient was given antiemetics and a GI cocktail in the ER feeling better. Discharged with strict precautions Differential diagnosis: Pancreatitis, acute cholecystitis, dehydration There are no social concerns with this patient. Prescription drug management Prescriptions will include: Zofran and Pepcid Medical management and examination interpretation discussions were had by me with other qualified healthcare professionals as indicated for the patient's care. DX & DISP Disposition: Discharge Departure Impression: Primary Impression: Medication side effect Condition: Stable Additional Instructions: Your blood work today is stable. Your symptoms are most likely related to the Mounjaro you started. I have you a prescription for Zofran and Pepcid which should improve your symptoms. Referrals: PEYMAN COX MD (PCP) I have reviewed the case, and I agree with, Diagnosis and Plan I performed the substantive portion of the visit. I have reviewed and personally made and approve the management plan that is documented in the note by myself or the ERIK. I acknowledge for responsibility for the patient's management plan. SOTO HERRERA NP Mar 14, 2025 18:41 SUDARSHAN CORBETT Mar 14, 2025 20:46
--- NOTE | 2025-03-14 19:12 | NUR ---
PT CARE ASSUMED AT THIS TIME
--- NOTE | 2025-03-14 20:20 | HMCIMG ---
EXAM: US Abdomen, Right Upper Quadrant. CLINICAL HISTORY: epigastric pain TECHNIQUE: Right upper quadrant sonography performed with image documentation. COMPARISON: None provided. FINDINGS: LIVER: Mildly enlarged in size, measuring 16cm with coarse echotexture and nodular outline. A small cyst in the right lobe measuring 2.6 x 2.4 x 23 cm. GALLBLADDER: Post cholecystectomy status. COMMON BILE DUCT: Within normal limits in size. PANCREAS: The visualized pancreas appears within normal limits. The distal pancreas is obscured by bowel gas. RIGHT KIDNEY: Unremarkable. Normal renal contours. No renal mass or calculus. No hydronephrosis. IMPRESSION: 1. Mildly enlarged liver with coarse echotexture and nodular outline, suggestive of chronic liver disease. 2. Small hepatic cyst in the right lobe, measuring 2.6 x 2.4 x 2.3 cm. /[place]
[2025-03-14] MEDS: LIDOCAINE HCL 2% VISCOUS 15 ML UDCUP PO ONE (20:52)
[2025-03-14] MEDS: DICYCLOMINE HCL 10 MG/5 ML ML PO ONE (20:52)
[2025-03-14] MEDS: MAG/ALUM/SIMETH 30 ML UDCUP PO ONE (20:53)
[2025-03-14] MEDS: FAMOTIDINE 20MG VIAL IV ONE (20:55)
[2025-03-14 21:05] VITALS: BP 142/83; PULSE 80; RESP 18; TEMP 98.1; O2SAT 96
== END 2025-03-14 21:25 | disposition home or self-care (01) ==
LOC: EDH 15:48
DX: R53.1 Weakness (principal); R19.7 Diarrhea, unspecified; R10.13 Epigastric pain; T50.905A Adverse effect of unspecified drugs, medicaments and biological substances, initial encounter; E11.9 Type 2 diabetes mellitus without complications; I10 Essential (primary) hypertension; F41.9 Anxiety disorder, unspecified; Z79.52 Long term (current) use of systemic steroids; Z79.899 Other long term (current) drug therapy; Y92.89 Other specified places as the place of occurrence of the external cause
CPT/HCPCS: 99284; 96374; 76705; 96361; 96375; 80076; 84484; 80048; 83690; 85025; 87086 ×3; 87186 ×2; 81001; 36415; 96376; 93005; J3490; J7030; J2405 ×2